=== PATIENT | male | born 1980 | race Caucasian/White ===

== ENCOUNTER 2020-04-03 11:28 | Outpatient (REF) | payer OTHER, SELFPAY ==
[2020-04-03 12:33] LABS: Hematocrit 42.4 % (42-52); Hemoglobin 14.5 g/dl (14.0-18.0); Mean Corpuscular HGB Conc 34.2 g/dl (31.0-36.0); Mean Corpuscular Volume 93.6 fL (80-98); Mean Platelet Volume 9.1 fL (9.4-12.4); Platelet Count 204 X10*3/uL (160-400); Red Blood Count 4.53 X10*6/uL (4.60-5.80); Red Cell Distribution Width 11.8 % (11.0-16.0); White Blood Count 4.6 X10*3/uL (4.8-10.8)
[2020-04-03 13:04] LABS: Alanine Aminotransferase 17 U/L (0-40); Albumin Level 4.6 g/dL (3.5-5.0); Alkaline Phosphatase 62 U/L (39-117); Anion Gap 9 (12-20); Aspartate Amino Transferase 19 U/L (5-37); Bilirubin Total 0.6 mg/dL (0.0-1.0); Blood Urea Nitrogen 12 mg/dL (9-16); Calcium 9.2 mg/dL (8.4-10.2); Carbon Dioxide 32 mmol/L (22-29); Chloride 105 mmol/L (96-108); Cholesterol 199 mg/dL; Estimated Glomerular Filt Rate > 60; Glucose Fasting 96 mg/dL (60-99); HDL Cholesterol 47 mg/dL; LDL Cholesterol Calculated 136 mg/dl; Potassium 4.4 mmol/L (3.3-5.1); Sodium 142 mmol/L (135-145); Total Protein 7.2 g/dL (6.5-8.0); Triglycerides 81 mg/dL
[2020-04-03 13:19] LABS: TSH reflex Free T4 0.77 uIU/mL (0.32-4.0)
== END 2020-04-03 11:29 | disposition home or self-care (01) ==
LOC: HO.LAB 11:28
PROVIDERS: PCP Physician Assistant; Visit Provider Physician Assistant
DX: I10 Essential (primary) hypertension (principal); Z13.1 Encounter for screening for diabetes mellitus; Z13.29 Encounter for screening for other suspected endocrine disorder; Z13.220 Encounter for screening for lipoid disorders
CPT/HCPCS: 36415; 80053; 80061; 84443; 85027

== ENCOUNTER 2020-04-23 11:27 | Outpatient (REF) | payer OTHER, SELFPAY ==
--- NOTE | ~2020-04-23 | US_ITS ---
EXAMINATION: US ABDOMEN LIMITED CLINICAL INFORMATION: Right upper quadrant pain. COMPARISON: None TECHNIQUE: Real-time imaging of the right upper quadrant abdominal viscera. FINDINGS: PANCREAS: The pancreas is partially obscured by overlying gas LIVER: The liver is normal in size. The liver contour is normal. Parenchymal echogenicity is normal. No focal hepatic lesion. There is no intrahepatic biliary duct dilatation seen. GALLBLADDER: Normal. The gallbladder is physiologically distended without evidence of stones, sludge, polyps, wall thickening or pericholecystic fluid. COMMON BILE DUCT: Normal in caliber measuring 0.3 cm in diameter. RIGHT KIDNEY: There is anechoic cyst lower pole lateral cortex with peripheral calcification with cyst measuring 1.0 x 1.0 x 1.2 cm. No hydronephrosis or renal calculi. The kidney measures 11.9 cm in maximum dimension. FREE FLUID: None. US/US abdomen limited IMPRESSION: Lateral lower pole complex cyst right kidney with peripheral calcification. No additional lesions seen. There are no echogenic gallstones or wall thickening.
== END 2020-04-23 11:28 | disposition home or self-care (01) ==
LOC: HO.US 11:27
PROVIDERS: PCP Physician Assistant; Visit Provider Physician Assistant
DX: R10.11 Right upper quadrant pain (principal)
CPT/HCPCS: 76705

== ENCOUNTER 2020-07-03 12:22 | Outpatient (REF) | payer OTHER, SELFPAY ==
[2020-07-03 13:11] LABS: Glucose Urine UA NEG (NEG); Leukocyte Esterase Urine NEG (NEG); Nitrite Urine NEG (NEG); Specific Gravity - Urine 1.025 (1.005-1.025); Urine Blood 2+ (NEG); Urine Ketones NEG (NEG); Urine Protein NEG (NEG-TRACE)
[2020-07-03 13:13] LABS: Appearance Urine CLEAR; Color Urine YELLOW
[2020-07-03 13:54] LABS: WBC Urine 0-2 /HPF (0-4)
== END 2020-07-03 12:23 | disposition home or self-care (01) ==
LOC: HO.LAB 12:22
PROVIDERS: PCP Physician Assistant; Visit Provider Physician Assistant
DX: R30.0 Dysuria (principal); R10.31 Right lower quadrant pain
CPT/HCPCS: 81001; 81003

== ENCOUNTER → 2020-07-07 10:44 | Outpatient (BNVA) | payer OTHER, SELFPAY | PROVIDERS: PCP Physician Assistant; Referring Provider Physician Assistant; Visit Provider Surgery ==

== ENCOUNTER 2020-07-24 12:28 | Outpatient (REF) | payer OTHER, SELFPAY ==
--- NOTE | ~2020-07-24 | US_ITS ---
EXAMINATION: US PELVIS, LIMITED CLINICAL INFORMATION: Status post right inguinal herniorrhaphy in 04/2019, without abnormality. COMPARISON: None TECHNIQUE: Multiple 2-D grayscale and color Doppler ultrasound images of the right inguinal region were obtained. FINDINGS: The patient is status post right inguinal herniorrhaphy with mesh repair. The mesh is seen causing acoustic shadowing limiting evaluation subjacent to the mesh. No definitive abnormality is seen. The overlying subcutaneous fat and skin are unremarkable. Color Doppler showed no abnormal vascular flow. US/US pelvic limited IMPRESSION: No overt abnormality in the right inguinal region.
--- NOTE | ~2020-07-24 | US_ITS ---
EXAMINATION: US RETROPERITONEAL LIMITED (RENAL ONLY) CLINICAL INFORMATION: Unspecified abdominal pain. COMPARISON: Ultrasound abdomen limited 04/23/2020. TECHNIQUE: Real-time imaging of the right kidney. FINDINGS: RIGHT KIDNEY: 10.9 x 6.2 x 7.5 cm (SAG x AP x TRV). A small exophytic anechoic cyst in the lower pole measures 1.0 cm. No nephrolithiasis or hydronephrosis. US/US renal BI IMPRESSION: Small anechoic cyst in the lower pole the right kidney without significant change or other significant abnormality.
== END 2020-07-24 12:29 | disposition home or self-care (01) ==
LOC: HO.US 12:28
PROVIDERS: Visit Provider Physician Assistant
DX: R10.9 Unspecified abdominal pain (principal); R31.29 Other microscopic hematuria
CPT/HCPCS: 76775; 76857

== ENCOUNTER 2020-08-20 11:00 | Outpatient (REF) | payer OTHER, SELFPAY ==
--- NOTE | ~2020-08-20 | XR_ITS ---
EXAMINATION: RIGHT WRIST X-RAY CLINICAL INFORMATION: Pain COMPARISON: Previous x-rays most recent January 2019 TECHNIQUE: 4 views of the right wrist FINDINGS: No acute fracture or dislocation is seen. There is an old ununited fracture of the mid scaphoid bone. There is arthritis at the first LONG TERM joint. There is arthritis at the radiocarpal joint. Soft tissues are unremarkable. 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 Arthritis at the first LONG TERM and radiocarpal joint.
== END 2020-08-20 11:01 | disposition home or self-care (01) ==
LOC: HO.HOSX 11:00
PROVIDERS: Visit Provider Orthopaedic Surgery
DX: M25.531 Pain in right wrist (principal)
CPT/HCPCS: 73110

== ENCOUNTER 2021-02-27 12:28 | Outpatient (REF) | payer OTHER, SELFPAY ==
[2021-02-27 12:54] LABS: Binax Now Covid-19 Ag Negative (Negative)
[2021-02-27 12:55] LABS: Binax Internal Control QC Valid; Binax Performed by: HO.BONILM
== END 2021-02-27 12:29 | disposition home or self-care (01) ==
LOC: HO.HMGCLDS 12:28
PROVIDERS: Visit Provider Internal Medicine
DX: Z20.822 Contact with and (suspected) exposure to COVID-19 (principal); J06.9 Acute upper respiratory infection, unspecified
CPT/HCPCS: 36415

== ENCOUNTER 2021-04-10 12:21 | Outpatient (REF) | payer OTHER, SELFPAY ==
[2021-04-10 12:42] LABS: Hematocrit 38.8 % (42.0-52.0); Hemoglobin 13.3 g/dl (14.0-18.0); Mean Corpuscular HGB Conc 34.3 g/dl (31.0-36.0); Mean Corpuscular Hemoglobin 32.4 pg (27.0-33.0); Mean Corpuscular Volume 94.6 fL (80.0-98.0); Mean Platelet Volume 8.9 fL (9.4-12.4); Platelet Count 187 X10*3/uL (160-400); Red Cell Distribution Width 12.2 % (11.0-16.0); White Blood Count 3.9 X10*3/uL (4.8-10.8)
[2021-04-10 12:49] LABS: Estimated Average Glucose 88 mg/dL; Hemoglobin A1c % 4.7 %
[2021-04-10 13:07] LABS: Alanine Aminotransferase 20 U/L (0-40); Albumin Level 4.6 g/dL (3.5-5.0); Alkaline Phosphatase 56 U/L (39-117); Anion Gap 8 (12-20); Aspartate Amino Transferase 25 U/L (5-37); Bilirubin Total 0.5 mg/dL (0.0-1.0); Blood Urea Nitrogen 14 mg/dL (9-16); Calcium 9.4 mg/dL (8.4-10.2); Carbon Dioxide 31 mmol/L (22-29); Chloride 107 mmol/L (96-108); Cholesterol 202 mg/dL; Estimated Glomerular Filt Rate > 60; Glucose Fasting 100 mg/dL (60-99); HDL Cholesterol 46 mg/dL; LDL Cholesterol Calculated 136 mg/dl; Sodium 142 mmol/L (135-145); Total Protein 7.1 g/dL (6.5-8.0); Triglycerides 103 mg/dL
[2021-04-10 13:18] LABS: Appearance Urine CLOUDY; Color Urine YELLOW; Glucose Urine UA NEG (NEG); Leukocyte Esterase Urine NEG (NEG); Nitrite Urine NEG (NEG); PH 6.5 (5.0-8.0); UACC Culture Trigger NO; Urine Blood 2+ (NEG); Urine Ketones NEG (NEG); Urine Protein NEG (NEG-TRACE)
[2021-04-10 13:26] LABS: TSH reflex Free T4 4.19 uIU/mL (0.32-4.0)
[2021-04-10 13:35] LABS: Amorphous Sediment Urine 3+ /LPF; WBC Urine 0 /HPF (0-4)
[2021-04-10 14:05] LABS: Free T4 (Free Thyroxine) 1.05 ng/dL (0.71-1.85)
== END 2021-04-10 12:22 | disposition home or self-care (01) ==
LOC: HO.LAB 12:21
PROVIDERS: PCP Physician Assistant; Visit Provider Physician Assistant
DX: Z13.220 Encounter for screening for lipoid disorders (principal); Z13.1 Encounter for screening for diabetes mellitus; E03.9 Hypothyroidism, unspecified
CPT/HCPCS: 36415; 80053; 80061; 81001; 83036; 84439; 84443; 85027

== ENCOUNTER 2021-04-16 13:20 | Outpatient (REF) | payer OTHER, SELFPAY ==
--- NOTE | ~2021-04-16 | XR_ITS ---
EXAMINATION: XR RIBS, RIGHT CLINICAL INFORMATION: Right anterior rib pain COMPARISON: None TECHNIQUE: 3 views of the right ribs and one view of the chest were obtained. FINDINGS: Lungs are clear. No consolidation, pneumothorax, or pleural effusion. The cardiomediastinal silhouette and pulmonary vasculature are normal. There is a right CASINO ATTENDANT shunt catheter. Osseous structures are unremarkable. Ribs are intact. No fractures are identified. XR/XR ribs RT min 3V w CXR1V IMPRESSION: Unremarkable examination.
== END 2021-04-16 13:21 | disposition home or self-care (01) ==
LOC: HO.XRAY 13:20
PROVIDERS: PCP Physician Assistant; Visit Provider Physician Assistant
DX: R07.81 Pleurodynia (principal)
CPT/HCPCS: 71101

== ENCOUNTER 2021-05-15 13:12 | Outpatient (REF) | payer OTHER, SELFPAY ==
--- NOTE | ~2021-05-15 | CT_ITS ---
EXAMINATION: CT WRIST WITHOUT CONTRAST, RIGHT CLINICAL INFORMATION: Fracture of navicular. COMPARISON: X-ray of the right wrist July 2020. TECHNIQUE: CT scan of the right wrist was performed with reconstruction imaging performed at the acquisition workstation. This CT examination was performed using dose optimization techniques as appropriate, variously including the following: *Automated exposure control *Adjustment of mA and/or kV according to patient size (this includes techniques or standardized protocols for targeted exams where dose is matched to indication/reason for exam; i.e. extremities or head) *Use of iterative reconstruction technique DLP: 96 mGy-cm FINDINGS: There is a minimally displaced fracture through the proximal scaphoid at the junction of the proximal middle one third portion of the bone. There are sclerotic margins on either side of the fracture line. The fracture gap is small measuring approximately 1 mm. There is 1.5 mm of radial displacement of the distal fragment. There is no increased osseous density or fragmentation of the proximal pole fragment. There is a small osseous fragment measuring approximately 3 mm within the radial aspect of the radiocarpal joint which likely reflects a displaced fracture fragment related to the aforementioned fracture. There is subchondral cystic change on the radial side of the radial scaphoid joint compatible with focal mild arthrosis of the radiocarpal compartment at the level of the scaphoid fossa. Additional findings: Scattered carpal cysts present in the distal scaphoid and capitate and hamate. First carpometacarpal joint: There is nonuniform joint space narrowing with marginal osteophytes indicative of [id number] osteoarthritis. Small well-circumscribed 3 mm osseous fragment adjacent to the dorsal aspect of the lunate. This could reflect an old fracture ununited or ossicle. CT/CT wrist RT wo con IMPRESSION: Scaphoid fracture nonunion. No CT findings to suggest avascular necrosis of the proximal pole fragment. 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 Small loose body likely related to small displaced fracture fragment related to the fracture. [id number] osteoarthritis of the 1st carpometacarpal joint. Carpal ossicle versus old ununited fracture along the dorsal aspect of the lunate.
== END 2021-05-15 13:13 | disposition home or self-care (01) ==
LOC: HO.CT 13:12
PROVIDERS: Visit Provider Orthopaedic Surgery
DX: S62.001K Unspecified fracture of navicular [scaphoid] bone of right wrist, subsequent encounter for fracture with nonunion (principal)
CPT/HCPCS: 73200

== ENCOUNTER → 2021-06-02 10:32 | Outpatient (BNVA) | payer OTHER, SELFPAY | PROVIDERS: PCP Physician Assistant; Visit Provider Orthopaedic Surgery | DX: Z13.89 Encounter for screening for other disorder (principal) ==

== ENCOUNTER 2021-07-30 10:07 | Day surgery (SDC) | payer OTHER, SELFPAY ==
--- NOTE | ~2021-07-30 | FL_ITS ---
EXAMINATION: XR FLUOROSCOPY WITH IMAGES CLINICAL INFORMATION: Wrist pain with nonunited scaphoid fracture. COMPARISON: 08/20/2020 TECHNIQUE: Fluoroscopy performed by Dr. Trish Ferrer. Fluoroscopy time: 14.9 seconds DAP: 0.0184 Gycm2 Images: 1 FINDINGS: Single AP view of the wrist performed by C-arm. FL/FL guidance in OR IMPRESSION: Intraoperative fluoroscopy used for orthopedic procedure.
[2021-07-30 10:32] VITALS: BP 107/69; PULSE 67; RESP 18; TEMP 36.4; O2SAT 99; BMI 24.3
[2021-07-30 13:20] VITALS: BP 108/68; PULSE 64; RESP 18; TEMP 36.2; O2SAT 98
--- NOTE | 2021-07-30 13:22 | PM.PRCOR ---
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 Both were approximately 4 to 5/10. Again he has very good and functional wrist range of motion at this time. Injection #1 : The risks and benefits of a steroid injection including but not limited to risk of damage to blood vessels, nerve, tendon, infection, skin bleaching, persistent or worsening pain, and failure to improve symptoms were discussed with the patient and they wish to proceed with the steroid injection. Once consent was obtained the skin over the dorsum of the right wrist was sterilely prepped. Using the mini C-arm for needle guidance, the joint was then injected with a combination of 1 mL of (80 mg/ml} Depo-Medrol and 0.25 % plain Marcaine. The patient appears to have tolerated the procedure well and with no complications. He understands that he may have no more than 3 injections into this joint in a year, and he would be eligible for another injection in 4 months. Follow-up p.r.n. Surgeon: Trish Ferrer Condition: stable Disposition: same day
== END 2021-07-30 13:25 | disposition home or self-care (01) ==
PROVIDERS: PCP Physician Assistant; Visit Provider Orthopaedic Surgery
PROC: (CPT 20605; principal; 2021-07-30 11:10)
DX: S62.001K Unspecified fracture of navicular [scaphoid] bone of right wrist, subsequent encounter for fracture with nonunion (principal); M19.031 Primary osteoarthritis, right wrist; M24.031 Loose body in right wrist; X58.XXXD Exposure to other specified factors, subsequent encounter; Z87.828 Personal history of other (healed) physical injury and trauma; Z87.891 Personal history of nicotine dependence
CPT/HCPCS: 20605; J1040

== ENCOUNTER 2021-09-10 11:11 | Outpatient (REF) | payer OTHER, SELFPAY ==
[2021-09-10 13:07] LABS: TSH reflex Free T4 0.54 uIU/mL (0.32-4.0)
[2021-09-10 13:58] LABS: Appearance Urine CLEAR; Color Urine YELLOW; Glucose Urine UA NEG (NEG); Leukocyte Esterase Urine NEG (NEG); Nitrite Urine NEG (NEG); PH 6.5 (5.0-8.0); UACC Culture Trigger NO; Urine Blood 2+ (NEG); Urine Ketones NEG (NEG); Urine Protein NEG (NEG-TRACE)
[2021-09-10 14:10] LABS: Hyaline Casts Urine 0-2 /LPF; WBC Urine 0 /HPF (0-4)
== END 2021-09-10 11:12 | disposition home or self-care (01) ==
LOC: HO.LAB 11:11
PROVIDERS: PCP Physician Assistant; Visit Provider Physician Assistant
DX: E03.9 Hypothyroidism, unspecified (principal)
CPT/HCPCS: 36415; 81001; 84443

== ENCOUNTER 2021-10-19 11:00 | Outpatient (RCR) | payer OTHER, SELFPAY ==
--- NOTE | 2021-09-14 12:19 | MHC.OT.OEV ---
[address] [phone] F: [phone] Occupational Therapy Evaluation Diagnosis: Right Scaphoid non-union, s/p cortisone injection Date of Onset: 07/24/21 Attending Provider: Dr Ferrer Prescribed Treatment: Ron and Shelly MD Follow Up Appointment: 09/15/21 History of Current Condition: Pt w/ hx of multiple injury to right wrist, resulting in right scaphoid non-union, CT shows evidence of STT arthritis. He has had multiple discussions w/ military technology specialist and has decided to trial conservative treatment at this time, now s/p cortisone injection 07/24/21. About one week after injection, he noticed weakness in all digits, which has mostly returned, but he continues to have absent right thumb IP extension. Significant Medical History: Craniotomy w/ shunt about 20 years ago Right clavicle fracture Hand Dominance: Right QuickDASH Score: 18 Prior Level of Function and Occupation Self Care, Employment, Leisure: Pt works at a long-term, STATISTICS MANAGER and med management Enjoys [employer], Help[employer] Living Situation, Family and/or Social Support: Lives w/ girlfriend Current Level of Function and Occupation Self Care, Employment, Leisure: Ind w/ daily activities, low pain in general but difficulty holding objects Sleep: No changes due to thumb/wrist pain Driving: No issues Pain Assessment Pain Score: 3 Pain Scale Used: Numeric (0 - 10) Pain Location and Description: Dorsal-radial wrist, 3/10 resting, 5/10 w/ heavier use Tenderness to palpate over snuffbox Aggravating Factors: Gripping, heavier use, heavy carrying Alleviating Factors: Splint, Ibuprophen frequently, Diclofenac PRN Skin and Soft Tissue Assessment Skin and Soft Tissue: Swelling Nerve assessment Comments: Grossly WNL, however pt appears to have potential PIN injury w/ loss of active D1 IP extension, weak radial and palmar abduction, thumb extension Sensory Assessment Comments: Light touch intact B/L'ly Edema Assessment Upper Extremity: Right Impaired Lower Extremity: Comments: Edema in dorsal-radial wrist Dexterity Assessment Dexterity: Right Impaired AROM(PROM) Strength Cervical Cervical Flexion: Cervical Extension: Cervical Lateral Flexion: Cervical Rotation: Comments: WFL Shoulder Flexion: Extension: Abduction: Internal Rotation: External Rotation: Comments: WFL Flexion: Extension: Abduction: Internal Rotation: External Rotation: Comments: Elbow Flexion: Extension: Pronation: Supination: Comments: WFL Flexion: Extension: Pronation: Supination: Comments: Wrist Flexion: R 45 L 64 Extension: R 64 L 72 Ulnar Deviation: Radial Deviation: Comments: Flexion: Extension: Ulnar Deviation: Radial Deviation: Comments: Grossly 5/5 Thumb Thumb CMC Flexion: Thumb MCP Flexion: Thumb IP Flexion: Radial Abduction: Palmar Abduction: [place] (Kapandji 0-10): Comments: WFL PROM on right Digits Index MCP: PIP: DIP: Long MCP: PIP: DIP: Ring MCP: PIP: DIP: Small MCP: PIP: DIP: Comments: WFL Gross Grasp: R 98lb L 100lb Lateral Pinch: R 20lb L 22lb Two-Point Pinch: R 5lb L 13lb Three-Jaw Mikel: Comments: Patient Education Primary Language: Guamanian Manager Of Revenue Required: No Current Knowledge: Teaching Method: Education Needs Identified on Evaluation: ADL's Disease Information Equipment Use Exercise Pain Safety How did patient/family demonstrate learning? Patient demonstrates Patient verbalizes Barriers to Learning: None Readiness for Learning: Accepting Who was educated? 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 He is initially concerned for trigger finger due to difficulty w/ thumb extension, but further assessment consistent PIN injury w/ weak thumb abduction and extension, particularly 0/5 IP extension. He reports overall improvements in wrist pain s/p cortisone infection and gross grasp is intact, all other digits WFL with very slight weakness in index extension at MCP. At this time I have recommended he wear thumb spica at night to protect wrist and have given him an oval 8 for IP extension to prevent stretching of extensors. We will continue OT for progression of strengthening and functional return as he is showing good signs of recovery. Pt has appointment with Dr Ferrer tomorrow and will update on further information and recommendations. STG Duration: 1 week Short Term Goals: Ind w/ HEP Ind w/ oval 8 and thumb spica splint as appropriate Pt to demo trace active IP extension LTG Duration: 4 weeks Half-Way Goals: Pt to demo good use of thumb for FMC tasks Pt to demo active thumb IP extension >3/5 Ind w/ progression of self management Frequency and Duration: The patient will be seen 1-2 x/wk for 4 weeks Treatment Plan: Therapeutic Exercise Therapeutic Activity Home Exercise Program Splinting Patient Education Edema Control ADL Training NMES Paraffin Fluidotherapy MHP Soft Tissue Mobilization Kinesiotaping Electronically Signed By: Jovita De La Fuente OTR/L CHT Please sign and return to therapist, Thank you for your referral.
--- NOTE | 2021-11-23 14:10 | MHC.OT.DC ---
[address] [phone] F: [phone] Occupational Therapy Discharge Note Provider: Dr Ferrer Diagnosis: Right Scaphoid non-union, s/p cortisone injection Date of Evaluation: 09/14/21 Date of Discharge: 11/23/21 Treatments to Date: 4 Discharge Status: Patient Elected to Stop Discharge Summary: Khalif has not attended OT in over a month, since time of latest progress note and MD visit. At that time he cont'd to have absent thumb IP extension, but improved strength w/ index ext, radial and palm thumb abd. Pt has good follow through w/ HEP, still overdoing it w/ aggravating activities. Electronically Signed By: Jovita De La Fuente, OTR/L CHT Please Sign and return to therapist, thank you for your referral.
== END 2021-11-23 14:11 | disposition home or self-care (01) ==
LOC: HO.OT 11:00
PROVIDERS: PCP Physician Assistant; Visit Provider Orthopaedic Surgery
DX: S62.001K Unspecified fracture of navicular [scaphoid] bone of right wrist, subsequent encounter for fracture with nonunion (principal)
CPT/HCPCS: 97110; 97166

== ENCOUNTER 2021-10-20 09:10 | Outpatient (REF) | payer OTHER, SELFPAY ==
--- NOTE | ~2021-10-20 | XR_ITS ---
EXAMINATION: XR WRIST, RIGHT CLINICAL INFORMATION: Right wrist pain COMPARISON: Radiograph 08/20/2020. CT 05/15/2021. TECHNIQUE: 4 views of the right wrist. FINDINGS: The chronic nonunion of the scaphoid fracture is again noted. Small ossific gap between the fragments. Alignment maintained otherwise. Carpal rows are aligned. Joint spaces are maintained. XR/XR wrist RT w scaphoid IMPRESSION: Unchanged alignment of the chronic nonunited scaphoid fracture.
== END 2021-10-20 09:11 | disposition home or self-care (01) ==
LOC: HO.HOSX 09:10
PROVIDERS: Visit Provider Orthopaedic Surgery
DX: M25.531 Pain in right wrist (principal)
CPT/HCPCS: 73110

== ENCOUNTER 2022-03-05 12:32 | Outpatient (REF) | payer OTHER, SELFPAY ==
[2022-03-05 13:31] LABS: Appearance Urine Clear; Color Urine Dark Yellow; Glucose Urine UA Negative (Negative); Leukocyte Esterase Urine Negative (Negative); Nitrite Urine Negative (Negative); Specific Gravity - Urine >= 1.030 (1.005-1.025); Urine Blood Negative (Negative); Urine Ketones Trace mg/dL (Negative); Urine Protein Trace mg/dL (Neg-Trace)
== END 2022-03-05 12:33 | disposition home or self-care (01) ==
LOC: HO.LAB 12:32
PROVIDERS: PCP Physician Assistant; Visit Provider Physician Assistant
DX: R30.0 Dysuria (principal); R31.29 Other microscopic hematuria
CPT/HCPCS: 81003

== ENCOUNTER 2022-03-12 14:57 | Outpatient (REF) | payer OTHER, SELFPAY ==
[2022-03-12 17:36] LABS: Urine Cytology See Pathology rpt
== END 2022-03-12 14:58 | disposition home or self-care (01) ==
LOC: HO.LAB 14:57
PROVIDERS: PCP Physician Assistant; Visit Provider Nurse Practitioner Family
DX: R31.29 Other microscopic hematuria (principal); N28.1 Cyst of kidney, acquired
CPT/HCPCS: 88112

== ENCOUNTER 2022-04-19 11:01 | Outpatient (REF) | payer OTHER, SELFPAY ==
--- NOTE | ~2022-04-19 | CT_ITS ---
EXAMINATION: CT ABDOMEN AND PELVIS WITHOUT AND WITH CONTRAST CLINICAL INFORMATION: N28.1 - Cyst of kidney, acquired. Microscopic hematuria. COMPARISON: Renal ultrasound 07/24/2020, abdominal ultrasound 04/23/2020. CT head 02/06/2015. TECHNIQUE: Multidetector volumetric imaging was performed of the abdomen and pelvis before and after the IV administration of 85 mL of Omnipaque 300 intravenous contrast. Sagittal and coronal reformatted images were obtained on the technologist's workstation. No oral contrast. This CT examination was performed using dose optimization techniques as appropriate, variously including the following: *Automated exposure control *Adjustment of mA and/or kV according to patient size (this includes techniques or standardized protocols for targeted exams where dose is matched to indication/reason for exam; i.e. extremities or head) *Use of iterative reconstruction technique DLP: 638 mGy-cm FINDINGS: LUNG BASES: The visualized lung bases are unremarkable. LIVER, GALLBLADDER, AND BILIARY TREE: The liver is normal in size and smooth in contour. There is a cyst central segment 7 measuring 1.8 x 1.4 cm. The gallbladder is unremarkable with no evidence of radiopaque gallstones, gallbladder wall thickening, or obvious pericholecystic inflammatory changes. PANCREAS: Unremarkable SPLEEN: Unremarkable ADRENAL GLANDS: Unremarkable KIDNEYS AND URETERS: The kidneys are normal in size and smooth in contour. There is no hydronephrosis, caliectasis, hydroureter, or perinephric stranding. No urinary tract calculi. Right kidney has a tiny exophytic cyst lower pole 0.9 cm, 11-14 HU. No associated calcification as was suspected on ultrasound report 04/23/2020. No other parenchymal lesion. No additional imaging follow-up recommended. Left kidney unremarkable. BLADDER: Unremarkable. Partially distended. No bladder calculus or focal wall thickening. GASTROINTESTINAL TRACT: No bowel obstruction or focal inflammatory changes in bowel or mesentery. Normal appendix. There is a ventriculoperitoneal shunt catheter present with some trace fluid lower right anterior abdomen/pelvis. No loculated fluid collection or significant ascites. ABDOMINAL WALL: Borderline fat-containing umbilical hernia under 2 cm. LYMPH NODES: No lymphadenopathy. VASCULAR: Unremarkable PELVIC VISCERA: Unremarkable OSSEOUS STRUCTURES: Unremarkable CT/CT abdomen pelvis wo/w IV con IMPRESSION: -No hydronephrosis, calculi, or perinephric stranding. -Tiny exophytic cyst lower pole right kidney 0.9 cm. No associated calcification as was suspected on ultrasound 04/23/2020. No additional imaging follow-up recommended. -Liver cyst 1.8 x 1.4 cm.
[2022-04-19] MEDS: iohexoL 350 MG/ML 100 ML INFUS..BTL 85 ML IV (11:48)
== END 2022-04-19 11:02 | disposition home or self-care (01) ==
LOC: HO.CT 11:01
PROVIDERS: PCP Physician Assistant; Visit Provider Nurse Practitioner Family
DX: N28.1 Cyst of kidney, acquired (principal); R31.29 Other microscopic hematuria
CPT/HCPCS: 74178; Q9967

== ENCOUNTER → 2022-06-25 14:19 | Outpatient (BNVA) | payer OTHER, SELFPAY | PROVIDERS: PCP Physician Assistant; Visit Provider Urology ==

== ENCOUNTER 2022-12-29 15:31 | Outpatient (AMB) | payer OTHER, SELFPAY ==
[2022-12-29 15:33] VITALS: BP 118/80; PULSE 80; O2SAT 96; BMI 24.8
--- NOTE | 2022-12-29 15:33 | MHC.PC.OV ---
Vital Signs 12/29/22 15:33 Height 5 ft 9 in Weight 168 lb 4 oz BMI 24.8 BP 118/80 Blood Pressure Location Lt brachial Position Sitting Pulse 80 Pulse Source Pulse Oximeter Pulse Oximetry (%) 96 Oxygen Delivery Method Room Air Intake Visit Reasons: heart palpitations (no chest pain/SOB) Intake Note: Pt is here for ongoing palpitations and is coming more often. Pt denies any chest pain or SOB and sleeping well. Box Toe Buffer Required: No Accompanied by: Self / Same As Patient Allergies No Known Allergies Allergy (Verified 12/29/22 15:47) Medication List - Last Reconciled 12/29/22 by Nasir Perkins PA-C clobetasol 0.05% 1 appl topical DAILY 30 days diclofenac sodium 75 mg PO BID 15 days lamotrigine 200 mg PO BID levothyroxine 175 mcg PO DAILY Tobacco use date assessed: 08/12/22 Dental Screening Dental Screen Date: 12/29/22 Did you have a dental visit in the last 12 months?: Yes Did you have a dental problem in the last 6 months where you did not have access to dental care?: No Was dental information given to patient?: Patient has dentist HPI heart palpitations (no chest pain/SOB) HPI Details Patient is a 42-year-old male here today for a problem visit. He reports noticing heart palpitations this past weekend. He does admit to drinking more coffee as he has not been getting good sleep. He attributes these palpitations possibly to increase in his caffeine use which is very possible. Otherwise currently feeling well. Physical exam without any notable arrhythmia, gallops or murmurs. 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 Father Heart attack, Onset Age: 57 Diabetes Social History Housing: Apartment Alcohol intake: current Alcohol intake frequency: a few times a month Alcohol type: beer Patient Tobacco Use Status: Former Tobacco user Quit Date: 2002 Tobacco use type: Cigarette e-Cigarette/Vaping Use: Never Used Second Hand Smoke Exposure: No service: No Current occupational status: employed Current occupation: rt hand /patient care Cognitive needs: No Hearing needs: No Vision needs: Yes (Glasses) Questionnaire PHQ-9 Over the last 2 weeks, how often have you been bothered by any of the following problems? 1. Little interest or pleasure in doing things: not at all 2. Feeling down, depressed, or hopeless: not at all 3. Trouble falling or staying asleep, or sleeping too much: not at all 4. Feeling tired or having little energy: not at all 5. Poor appetite or overeating: not at all 6. Feeling bad about yourself - or that you are a failure or have let yourself or your family down: not at all 7. Trouble concentrating on things, such as reading the newspaper or watching television: not at all 8. Moving or speaking so slowly that other people could have noticed. Or the opposite - being so fidgety or restless that you have been moving around a lot more than usual: not at all 9. Thoughts that you would be better off or of hurting yourself in some way: not at all Total score: 0 Depression Screening Interpretation: Negative Depression Screening Done: Yes 10932 - PHQ-9 Billing: Yes Source: Developed by Drs. Robbin Hancock, Lilibeth Bobby, Epifanio See and colleagues, with an educational phu from [employer]. Thrive Questionnaire Date Thrive assessed: 08/12/22 I am a: Patient What is your living situation today?: I have a steady place to live Please select the resources that you would like help with: None Currently or been in a relationship where the following occur: no concerns reported AUDIT C Alcohol Use Questionnaire (AUDIT-C) 1. How often do you have a drink containing alcohol?: 2-3 times a week 2. How many drinks containing alcohol do you have on a typical day when you are drinking?: 5 or 6 3. How often do you have six or more drinks on one occasion?: Weekly Total Score: 8 BJORN-7 AMB Questionnaire BJORN-7 Date BJORN - 7 assessed: 08/12/22 Feeling nervous, anxious, or on edge: 0 = Not at all Not being able to stop or control worryin = Not at all Worrying too much about different things: 0 = Not at all Trouble relaxin = Not at all Being so restless that it is hard to sit still: 0 = Not at all Becoming easily annoyed or irritable: 0 = Not at all Feeling afraid as if something awful might happen: 0 = Not at all Total BJORN-7 score (0-4 normal; 5-9 mild; 10-14 moderate; 15-21 severe): 0 Source: Developed by Drs. Robbin Hancock, Lilibeth Bobby, Epifanio See and colleagues, with an educational phu from [employer]. BJORN-7 Assessment Billing BJORN-7 Assessment Tool: BJORN-7 Assessment 21746 Review of Systems Const Denies headache(s) Eyes Denies loss of vision ENT Denies vertigo, Denies dizziness, Denies headache(s) and Denies sore throat Card Details: + heart palpitations Denies chest pain, Denies leg edema and Denies lightheadedness Resp Denies cough, Denies hemoptysis and Denies wheezing GI Denies abdominal pain, Denies melena, Denies constipation, Denies diarrhea and Denies vomiting Denies dysuria, Denies urinary frequency and Denies urinary urgency Musc Denies arthralgias, Denies joint swelling, Denies numbness and Denies tingling Neuro Denies Abnormal speech present, Denies behavioral changes, Denies vertigo, Denies dizziness, Denies headache(s), Denies loss of vision, Denies memory loss, Denies numbness and Denies tingling Psych Denies anxiety, Denies behavioral changes, Denies depression, Denies memory loss and Denies panic attacks Wilbur/Lymph Denies easy bleeding and Denies easy bruising Aller/Immun Denies wheezing Physical exam (Primary Care) Vital Signs: Last Vital Signs Pulse 80 12/29/22 15:33 BP 118/80 12/29/22 15:33 Pulse Ox 96 12/29/22 15:33 Oxygen Delivery Method Room Air 12/29/22 15:33 BMI result Body Mass Index 24.8 Tobacco/Smoking Status: Tobacco use Status Tobacco use date assessed 08/12/22 12/29/22 15:35 Patient Tobacco Use Status Former Tobacco user 12/29/22 15:35 Tobacco use type Cigarette 12/29/22 15:35 e-Cigarette/Vaping Use Never Used 12/29/22 15:35 PHQ-9: PHQ-9 Score PHQ-9: Total score 0 12/29/22 15:43 Depression Screening Interpretation: Negative Thrive Assessment: Date of Thrive Assessment Date Thrive assessed 08/12/22 12/29/22 15:35 Currently or been in a relationship where the following occur: no concerns reported Const General: healthy appearing, no acute distress, alert and awake Nutritional Appearance: well nourished Orientation/consciousness: oriented to person, oriented to place and oriented to time HENMT Ears: TM's normal bilaterally General nose exam: Normal nasal mucous membranes and turbinates present Eyes Conjunctivae: conjunctivae normal Sclerae: sclerae normal Pupils: Equal, round and reactive pupils present Neck Neck: Yes no lymphadenopathy and Yes no JVD Thyroid: Thyroid normal Carotids: no bruits Resp Effort & Inspection: normal respiratory effort and not tachypneic Auscultation: no crackles, no rales, no rhonchi and no wheezes Cardio Rate: regular rate Rhythm: regular rhythm Heart sounds: no murmurs and normal S1 and S2 GI Palpation (GI): Soft to palpation, nontender, no hepatomegaly and no splenomegaly Auscultation: normal bowel sounds Skin General skin exam: no rashes or lesions noted and dry skin Neuro General: oriented to person, oriented to place and oriented to time Cranial nerves: Yes Equal, round and reactive pupils present Speech: No Abnormal speech present Gait exam (Neuro): Normal gait present Motor exam (neuro): no tremor noted Extrem Right upper extremity: full ROM Left upper extremity: full ROM Right lower extremity: full ROM; no edema Left lower extremity: full ROM; no edema Psych Mental Status: mental status grossly normal Speech and movement: Normal speech and movement present Affect: normal affect Attitude: cooperative Thought process: Normal thought process present Assessment and Plan Assessment & Plan (1) Heart palpitations: Code(s): R00.2 - Palpitations Plan: Had noticed more palpitations recently. He has been drinking more caffeine and smoking marijuana which he attributes to his palpitations. He will try to reduce his caffeine to see if his palpitations get better. Will consider Holter monitor to evaluate for arrhythmia. Coding Level of Care Code Est Pt Level 3 (57093) Diagnoses Heart palpitations R00.2 Additional Codes BJORN-7 Assessment Billing - BJORN-7 Assessment Tool: BJORN-7 Assessment 32227 ([id number])
== END 2022-12-29 15:58 | disposition home or self-care (01) ==
PROVIDERS: PCP Physician Assistant; Visit Provider Physician Assistant
DX: R00.2 Palpitations (principal)
CPT/HCPCS: 99213

== ENCOUNTER 2023-01-14 14:28 | Outpatient (AMB) | payer OTHER, SELFPAY ==
[2023-01-14 14:29] VITALS: BP 110/70; PULSE 60; TEMP 36.6; O2SAT 98; BMI 24.8
--- NOTE | 2023-01-14 14:29 | AM.OFFWIN_ITS ---
Intake Vital Signs 01/14/23 14:29 Height 5 ft 9 in Weight 168 lb BMI 24.8 BP 110/70 Blood Pressure Location Rt brachial Position Sitting Pulse 60 Pulse Source Pulse Oximeter Temp 97.8 F Temp Source Temporal Artery Scan Pulse Oximetry (%) 98 Intake Visit Reasons: EP Heart Palpitation Intake Note: pt is here for c.o heart palpitation sporadically over the last few weeks Patient Tobacco Use Status: Former Tobacco user Quit Date: 2002 Allergies No Known Allergies Allergy (Verified 01/16/23 15:27) HPI EP Heart Palpitation HPI Details 42 yr old male presents to the office fo r a sick visit. He is reporting symptoms of irregular heart beat. Reports sx of thumping at times. No nausea or vomiting. Called his PCP who has scheduled him for an holter monitor. No reports of dizziness, diaphoresis, shortness of breath or chest pains. Able to function and do all activities of daily living. 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 Father Heart attack, Onset Age: 57 Diabetes Housing: Apartment Alcohol intake: current Alcohol intake frequency: a few times a month Alcohol type: beer Patient Tobacco Use Status: Former Tobacco user Quit Date: 2002 Tobacco use type: Cigarette e-Cigarette/Vaping Use: Never Used Second Hand Smoke Exposure: No service: No Current occupational status: employed Current occupation: rt hand /patient care Cognitive needs: No Hearing needs: No Vision needs: Yes (Glasses) Physical Exam Vital Signs: Last Vital Signs Temp 97.8 F 01/14/23 14:29 Pulse 60 01/14/23 14:29 BP 110/70 01/14/23 14:29 Pulse Ox 98 01/14/23 14:29 BMI result Body Mass Index 24.8 Const General: cooperative and healthy appearing Nutritional Appearance: well nourished Orientation/consciousness: patient oriented x3 Limitations: no limitations HEENT Head: Yes normal to inspection Eyes General: appearance normal, both eyes and all related structures Neck Neck: Yes normal visual inspection Chest Chest palpation & inspection: normal palpation of entire chest wall Resp Effort & Inspection: normal respiratory effort Neuro General: patient oriented x3 Office Procedures EKG Details: PVC 28389-[id number], Complete Assessment & Plan Assessment & Plan (1) Heart palpitations: Code(s): R00.2 - Palpitations Plan: Unremarkable EKG. Pt was reassured. Can wait till he gets his Holter monitor Orders: Orders AMB EKG-In Office 01/14/23 R07.9 - Chest pain, unspecified Coding Level of Care Code Est Pt Level 4 (76151) Diagnoses Heart palpitations R00.2 CPT Codes EKG - CPT: 59223-Eqzpknuasdfcaqcfd, Complete ([id number])
== END 2023-01-14 15:00 | disposition home or self-care (01) ==
PROVIDERS: PCP Physician Assistant; Visit Provider Internal Medicine
DX: R00.2 Palpitations (principal)
CPT/HCPCS: 93000; 99214

== ENCOUNTER → 2023-01-21 12:58 | Outpatient (REF) | payer OTHER, SELFPAY ==
--- NOTE | 2023-01-21 13:26 | HM_ITS ---
Conclusion: 1. Patient was monitored for total period of 2 days and 22 hours 2. Baseline was normal sinus with average heart of 77 beats per minute 3. No significant pauses or arrhythmias noted 4. Patient reported to events with mild chest pressure that correlated with sinus rhythm and sinus tachycardia MTDD
== END ==
LOC: HO.CARD 12:58
PROVIDERS: PCP Physician Assistant; Visit Provider Physician Assistant
DX: R00.2 Palpitations (principal)
CPT/HCPCS: 93242

== ENCOUNTER → 2023-01-21 13:26 | Outpatient (BNV) | payer OTHER, SELFPAY | PROVIDERS: PCP Physician Assistant; Visit Provider Internal Medicine Cardiovascular Disease | DX: R00.2 Palpitations (principal); R07.9 Chest pain, unspecified | CPT/HCPCS: 93244 ==

== ENCOUNTER 2023-03-07 09:49 | Outpatient (REF) | payer OTHER, SELFPAY ==
[2023-03-07 11:44] LABS: Blood Urea Nitrogen 12 mg/dL (9-16); Estimated Glomerular Filt Rate > 60
== END 2023-03-07 09:50 | disposition home or self-care (01) ==
LOC: HO.LAB 09:49
PROVIDERS: PCP Physician Assistant; Visit Provider Nurse Practitioner Family
DX: R39.15 Urgency of urination (principal)
CPT/HCPCS: 36415; 82565; 84520

== ENCOUNTER 2023-03-10 10:13 | Outpatient (AMB) | payer OTHER, SELFPAY ==
--- NOTE | 2023-03-10 10:06 | A.OFFPC_ITS ---
Intake Visit Reasons: 6 Month F/Up Security Door Installer Required: No Accompanied by: Self / Same As Patient Allergies No Known Allergies Allergy (Verified 01/16/23 15:27) Tobacco use date assessed: 03/10/23 Dental Screening Dental Screen Date: 03/10/23 Did you have a dental visit in the last 12 months?: Yes Did you have a dental problem in the last 6 months where you did not have access to dental care?: No Was dental information given to patient?: Patient has dentist HPI 6 Month F/Up HPI Details Patient is a 42-year-old male being evaluated today telephone only. Patient has a past medical history significant for traumatic brain injury, hypothyroidism. Recently experiencing heart palpitations and was sent for cardiac event monitor that did show some sinus tachycardia though no arrhythmia like AFib or a flutter.. .. Hypothyroidism: Continues on 175 mcg of levothyroxine. Will recheck TSH to assure normal. .. Epilepsy/traumatic brain injury: Continues to follow Neurology. Continues on lamotrigine and has not had any recent seizure activity. 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 Father Heart attack, Onset Age: 57 Diabetes Social History Housing: Apartment Alcohol intake: current Alcohol intake frequency: a few times a month Alcohol type: beer Patient Tobacco Use Status: Former Tobacco user Quit Date: 2002 Tobacco use type: Cigarette e-Cigarette/Vaping Use: Never Used Second Hand Smoke Exposure: No service: No Current occupational status: employed Current occupation: rt hand /patient care Cognitive needs: No Hearing needs: No Vision needs: Yes (Glasses) Questionnaire PHQ-9 Over the last 2 weeks, how often have you been bothered by any of the following problems? 1. Little interest or pleasure in doing things: not at all 2. Feeling down, depressed, or hopeless: not at all 3. Trouble falling or staying asleep, or sleeping too much: not at all 4. Feeling tired or having little energy: not at all 5. Poor appetite or overeating: not at all 6. Feeling bad about yourself - or that you are a failure or have let yourself or your family down: not at all 7. Trouble concentrating on things, such as reading the newspaper or watching television: not at all 8. Moving or speaking so slowly that other people could have noticed. Or the opposite - being so fidgety or restless that you have been moving around a lot more than usual: not at all 9. Thoughts that you would be better off or of hurting yourself in some way: not at all Total score: 0 Depression Screening Interpretation: Negative Depression Screening Done: Yes 57387 - PHQ-9 Billing: Yes Source: Developed by Drs. Robbin Hancock, Lilibeth Bobby, Epifanio See and colleagues, with an educational phu from [employer] ([place]). Thrive Questionnaire Date Thrive assessed: 03/10/23 I am a: Patient What is your living situation today?: I have a steady place to live Within the past 12 months, did the food you bought not last and you didn't have the money to get more?: Never true Within the past 12 months, did you worry whether your food would run out before you got money to buy more?: Never true Please select the resources that you would like help with: None Currently or been in a relationship where the following occur: no concerns reported AUDIT C Alcohol Use Questionnaire (AUDIT-C) 1. How often do you have a drink containing alcohol?: 2-3 times a week 2. How many drinks containing alcohol do you have on a typical day when you are drinking?: 5 or 6 3. How often do you have six or more drinks on one occasion?: Weekly Total Score: 8 BJORN-7 AMB Questionnaire BJORN-7 Date BJORN - 7 assessed: 03/10/23 Feeling nervous, anxious, or on edge: 0 = Not at all Not being able to stop or control worryin = Not at all Worrying too much about different things: 0 = Not at all Trouble relaxin = Not at all Being so restless that it is hard to sit still: 0 = Not at all Becoming easily annoyed or irritable: 0 = Not at all Feeling afraid as if something awful might happen: 0 = Not at all Total BJORN-7 score (0-4 normal; 5-9 mild; 10-14 moderate; 15-21 severe): 0 Source: Developed by Drs. Robbin Hancock, Lilibeth Bobby, Epifanio See and colleagues, with an educational phu from [employer] ([place]). BJORN-7 Assessment Billing BJORN-7 Assessment Tool: BJORN-7 Assessment 62201 Review of Systems Const Denies headache(s) Eyes Denies loss of vision ENT Denies vertigo, Denies dizziness, Denies headache(s) and Denies sore throat Card Denies chest pain, Denies leg edema and Denies lightheadedness Resp Denies cough, Denies hemoptysis and Denies wheezing GI Denies abdominal pain, Denies melena, Denies constipation, Denies diarrhea and Denies vomiting Denies dysuria, Denies urinary frequency and Denies urinary urgency Musc Denies arthralgias, Denies joint swelling, Denies numbness and Denies tingling Neuro Denies behavioral changes, Denies vertigo, Denies dizziness, Denies headache(s), Denies loss of vision, Denies memory loss, Denies numbness and Denies tingling Psych Denies anxiety, Denies behavioral changes, Denies depression, Denies memory loss and Denies panic attacks Wilbur/Lymph Denies easy bleeding and Denies easy bruising Aller/Immun Denies wheezing Physical exam (Primary Care) Tobacco/Smoking Status: Tobacco use Status Tobacco use date assessed 03/10/23 03/10/23 10:13 Patient Tobacco Use Status Former Tobacco user 03/10/23 10:07 Tobacco use type Cigarette 03/10/23 10:07 e-Cigarette/Vaping Use Never Used 03/10/23 10:07 PHQ-9: PHQ-9 Score PHQ-9: Total score 0 03/10/23 10:23 Depression Screening Interpretation: Negative Thrive Assessment: Date of Thrive Assessment Date Thrive assessed 03/10/23 03/10/23 10:07 Currently or been in a relationship where the following occur: no concerns reported Telehealth Telehealth Location of provider rendering services: practice address Location of patient: address on file Patient Identification confirmed using: Name, : Yes Telehealth method: voice only Patient verbally consented to treatment: Yes Patient verbally consented to billing insurance company: Yes Patient informed of any privacy concerns related to visit: Yes Minutes spent on Phone/Video with Pt.: 11 Assessment and Plan Assessment & Plan (1) Hypothyroidism: Code(s): E03.9 - Hypothyroidism, unspecified Qualifiers: Hypothyroidism type: unspecified Qualified Code(s): E03.9 - Hypothyroidism, unspecified Plan: Continues on levothyroxine 175 mcg. Will recheck his TSH to assure normal. Will make levothyroxine dose adjustments accordingly. (2) TBI (traumatic brain injury): Code(s): S06.9XAA - Unspecified intracranial injury with loss of consciousness status unknown, initial encounter Qualifiers: Encounter type: subsequent encounter Loss of consciousness presence/duration: with LOC of unspecified duration Qualified Code(s): S06.9X9D - Unspecified intracranial injury with loss of consciousness of unspecified duration, subsequent encounter Plan: Had traumatic brain injury many years ago leading to intracranial swelling and epileptic disorder. Needed a intracranial shunt. Continues to follow Neurology (3) Heart palpitations: Code(s): R00.2 - Palpitations Plan: Had recent Holter monitor that did show times of sinus tachycardia though no concerning arrhythmia. He is satisfied with results. (4) Arthritis of bxonwrvo-nsqdkoiqm-drwjojypt joint of right hand: Code(s): M19.031 - Primary osteoarthritis, right wrist Plan: He is status post surgery due to his scaphoid fracture. He reports his wrist pain and swelling is much better. He does have FMLA to take rest when appears. (5) Epilepsy: Code(s): G40.909 - Epilepsy, unspecified, not intractable, without status epilepticus Qualifiers: Epilepsy type: unspecified Intractability: not intractable Status e pilepticus: without status epilepticus Qualified Code(s): G40.909 - Epilepsy, unspecified, not intractable, without status epilepticus Plan: Has had epilepsy since his traumatic brain injury many years ago.. Has not had any seizure activity in quite some time. Continues on lamotrigine and follows at neurologist. (6) Borderline high cholesterol: Code(s): E78.9 - Disorder of lipoprotein metabolism, unspecified Plan: Most recent fasting lipid panel showing borderline high total cholesterol at 202. Will recheck fasting lipid panel Orders: Orders TSH reflex Free T4 Today E03.9 - Hypothyroidism, unspecified Lipid Panel Today E78.9 - Disorder of lipoprotein metabolism, unspecified Comprehensive [place]. Panel Fast Today Z13.1 - Encounter for screening for diabetes mellitus Medications: Refilled levothyroxine 175 mcg PO DAILY 90 tabs 1RF E03.9 - Hypothyroidism, unspecified Discontinued diclofenac sodium Discontinued Reason: Doctor's Order 75 mg PO BID 15 days 30 tabs 3RF M25.531 - Pain in right wrist Coding Level of Care Code Tele Est Pt Level 4 (39721) Diagnoses Hypothyroidism, unspecified type E03.9 Hypothyroidism type: unspecified Traumatic brain injury with loss of consciousness, subsequent encounter S06.9X9D Encounter type: subsequent encounter Loss of consciousness presence/duration: with LOC of unspecified duration Heart palpitations R00.2 Arthritis of tmolpuxj-rgiedakbs-kmswtfkqm joint of right hand M19.031 Nonintractable epilepsy without status epilepticus, unspecified epilepsy type G40.909 Epilepsy type: unspecified Intractability: not intractable Status epilepticus: without status epilepticus Borderline high cholesterol E78.9 Additional Codes BJORN-7 Assessment Billing - BJORN-7 Assessment Tool: BJORN-7 Assessment 40634 ([id number])
== END 2023-03-10 10:54 | disposition home or self-care (01) ==
LOC: HO.HMGH 10:13
PROVIDERS: PCP Physician Assistant; Visit Provider Physician Assistant
DX: E03.9 Hypothyroidism, unspecified (principal); G40.909 Epilepsy, unspecified, not intractable, without status epilepticus; S06.9X9D Unspecified intracranial injury with loss of consciousness of unspecified duration, subsequent encounter; R00.2 Palpitations; M19.031 Primary osteoarthritis, right wrist; E78.9 Disorder of lipoprotein metabolism, unspecified
CPT/HCPCS: 99214

== ENCOUNTER 2023-05-16 10:24 | Outpatient (REF) | payer OTHER, SELFPAY ==
[2023-05-16 13:13] LABS: Alanine Aminotransferase 18 U/L (0-40); Albumin Level 4.4 g/dL (3.5-5.0); Alkaline Phosphatase 66 U/L (39-117); Anion Gap 10 (12-20); Aspartate Amino Transferase 23 U/L (5-37); Bilirubin Total 0.4 mg/dL (0.0-1.0); Blood Urea Nitrogen 13 mg/dL (9-16); Calcium 9.5 mg/dL (8.4-10.2); Carbon Dioxide 31 mmol/L (22-29); Chloride 107 mmol/L (96-108); Cholesterol 175 mg/dL (<200); Estimated Glomerular Filt Rate > 60; Glucose Fasting 95 mg/dL (60-99); HDL Cholesterol 48 mg/dL (>40); LDL Cholesterol Calculated 105 mg/dL (<100); Potassium 3.8 mmol/L (3.3-5.1); Sodium 144 mmol/L (135-145); TSH reflex Free T4 0.23 uIU/mL (0.32-4.0); Total Protein 7.2 g/dL (6.5-8.0); Triglycerides 113 mg/dL (<150)
[2023-05-16 13:44] LABS: Free T4 (Free Thyroxine) 1.07 ng/dL (0.71-1.85)
== END 2023-05-16 10:25 | disposition home or self-care (01) ==
LOC: HO.LAB 10:24
PROVIDERS: PCP Physician Assistant; Visit Provider Physician Assistant
DX: Z13.1 Encounter for screening for diabetes mellitus (principal); E03.9 Hypothyroidism, unspecified; E78.9 Disorder of lipoprotein metabolism, unspecified
CPT/HCPCS: 36415; 80053; 80061; 84439; 84443

== ENCOUNTER 2023-10-03 10:54 | Outpatient (AMB) | payer OTHER, SELFPAY ==
--- NOTE | 2023-10-03 11:48 | MHC.OFFWIV ---
Intake Vital Signs 10/03/23 11:50 Height 5 ft 9 in Weight 168 lb BMI 24.8 BP 118/70 Blood Pressure Location Rt brachial Position Sitting Pulse 95 Pulse Source Pulse Oximeter Pulse Oximetry (%) 98 Oxygen Delivery Method Room Air Intake Visit Reasons: EP- extreme abdominal pain, started at 2am Intake Note: Patient here for extreme abdominal pain that started around 2am this morning, pt states it has worsened since then. Patient Tobacco Use Status: Former Tobacco user Allergies No Known Allergies Allergy (Verified 10/03/23 11:52) Do you need a note to return to daycare/school/sports/work: Yes HPI EP- extreme abdominal pain, started at 2am HPI Details This note is constructed using voice recognition software. While every effort has been made to ensure accuracy, core sticker errors may have been included. The patient is a 42 year old male who presents to the clinic today with abdomen pain. since 02:00 o'clock this morning. He denies fever, chills, nausea, vomiting, diarrhea. He notes that the pain woke him up in his rather sharp in nature and ?burning? he notes that the pain is progressively getting worse and rates it as 6/10. He typically moves his bowels every day, and last move them yesterday. He tried Tylenol and this did nothing for the pain. 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 Father Heart attack, Onset Age: 57 Diabetes Social History Housing: Apartment Alcohol intake: current Alcohol intake frequency: a few times a month Alcohol type: beer Patient Tobacco Use Status: Former Tobacco user Tobacco use type: Cigarette e-Cigarette/Vaping Use: Never Used Second Hand Smoke Exposure: No service: No Current occupational status: employed Current occupation: rt hand /patient care Cognitive needs: No Hearing needs: No Vision needs: Yes (Glasses) Review of Systems Const All systems reviewed & are unremarkable except as noted in HPI and below Physical Exam Vital Signs: Last Vital Signs Pulse 95 10/03/23 11:50 BP 118/70 10/03/23 11:50 Pulse Ox 98 10/03/23 11:50 Oxygen Delivery Method Room Air 10/03/23 11:50 BMI result Body Mass Index 24.8 Const General: cooperative, healthy appearing, comfortable, no acute distress and alert Orientation/consciousness: patient oriented x3 Limitations: no limitations Resp Effort & Inspection: normal respiratory effort and able to speak in complete sentences Auscultation: clear to auscultation bilaterally Cardio Jugular venous distension: no JVD Palpation: normal PMI Rate: regular rate Heart sounds: S1 normal heart sound present, S2 normal heart sound present, no click, no gallops, no murmurs and no rubs GI Other: Positive heel strike Inspection: Yes normal to inspection Palpation (GI): Soft to palpation, Tenderness to palpation present (GI) in the RLQ and Guarding due to palpation present (GI) in the RLQ Percussion: Yes normal to percussion Auscultation: Hypoactive bowel sounds present Skin General skin exam: no rashes or lesions noted, elasticity normal and turgor normal Neuro General: patient oriented x3 Psych Appearance: grossly normal Mental Status: mental status grossly normal Speech and movement: Normal speech and movement present Affect: normal affect Assessment & Plan Assessment & Plan (1) RLQ abdominal pain: Code(s): R10.31 - Right lower quadrant pain Plan: Physical examination and history concerning for appendix involvement. Advised patient be evaluated emergency room as we do not have any available imaging to rule out appendicitis. Patient agrees to have evaluation in the emergency room, and reports that he is able to transport himself. Plan See above for full details and plan. Coding Level of Care Code Est Pt Level 3 (37015) Diagnoses RLQ abdominal pain R10.31
[2023-10-03 11:50] VITALS: BP 118/70; PULSE 95; O2SAT 98; BMI 24.8
== END 2023-10-03 12:12 | disposition home or self-care (01) ==
PROVIDERS: PCP Physician Assistant; Visit Provider Registered Nurse
DX: R10.31 Right lower quadrant pain (principal)
CPT/HCPCS: 99213

== ENCOUNTER 2023-10-03 12:36 | Observation (INO) | payer OTHER, SELFPAY ==
--- NOTE | ~2023-10-03 | CT_ITS ---
EXAMINATION: CT ABDOMEN AND PELVIS WITH CONTRAST CLINICAL INFORMATION: abd pain, concern for appy COMPARISON: None. TECHNIQUE: Multidetector volumetric imaging was performed from the superior aspect of the liver through the pubic symphysis following administration of 85 mL Omnipaque 300 intravenous contrast. Sagittal and coronal reformatted images were obtained on the technologist workstation.. This CT examination was performed using dose optimization techniques as appropriate, variously including the following: *Automated exposure control *Adjustment of mA and/or kV according to patient size (this includes techniques or standardized protocols for targeted exams where dose is matched to indication/reason for exam; i.e. extremities or head) *Use of iterative reconstruction technique DLP: 423 mGy-cm FINDINGS: LUNG BASES: The visualized lung bases are unremarkable. LIVER, GALLBLADDER, AND BILIARY TREE: The liver is normal in size, shape, and attenuation. No focal hepatic lesion or biliary ductal dilatation is present. The gallbladder is unremarkable with no evidence of radiopaque gallstones, gallbladder wall thickening, or obvious pericholecystic inflammatory changes. PANCREAS: Unremarkable. SPLEEN: Prominent measuring 13.4 cm in length. ADRENAL GLANDS: Unremarkable. KIDNEYS AND URETERS: The kidneys are normal in size, shape, and attenuation. No hydronephrosis, hydroureter, or perinephric stranding. No calculi. BLADDER: Unremarkable. GASTROINTESTINAL TRACT: The small and large bowel are unremarkable. The retrocecal appendix is distended measuring 1.2 cm in diameter with mild wall enhancement and surrounding periappendiceal inflammatory change. Tiny appendicolith is seen near the appendiceal orifice. Appearance is consistent with acute appendicitis. There is mild edema in the region of the appendiceal orifice as well. The appendix had a more normal appearance on the prior study. ABDOMINAL WALL: No significant hernia is appreciated. SPRAY GUNNER shunt tubing is seen extending into the left midabdomen LYMPHOVASCULAR STRUCTURES: No lymphadenopathy. The aorta is unremarkable. PELVIC VISCERA: Unremarkable. OSSEOUS STRUCTURES: Unremarkable. CT/CT abdomen pelvis w IV con IMPRESSION: Findings consistent with acute appendicitis with a distended retrocecal appendix measuring 1.2 cm in diameter with surrounding periappendiceal inflammatory changes.
[2023-10-03 12:45] VITALS: BP 146/85; PULSE 60; RESP 18; TEMP 36.7; O2SAT 100; BMI 23.6
--- NOTE | 2023-10-03 12:48 | ED_ITS ---
HPI - General Adult General Chief complaint: Abdominal Pain Stated complaint: abd pain Time Seen by Provider: 10/03/23 17:31 Source: patient Mode of arrival: ambulatory Limitations: no limitations History of Present Illness ED Provider: Dr. Adilene Jaramillo HPI narrative: patient comes to the emergency room complaining of right lower quadrant pain that started approximately 15 hours ago. Patient states that the pain woke him up from sleep. Patient states that he has a constant right lower quadrant pain, however over the last few hours it has been intensifying. This morning, patient went to urgent care and they sent him to the emergency room due to significant pain to palpation over the right lower quadrant. Patient denies any nausea vomiting or diarrhea. Patient states that he has not eaten anything since earlier this morning, had assist few sips of coffee. Patient states that he does feel hungry. Related Data Home Medications ?Medication ?Instructions ?Recorded ?Confirmed lamotrigine 200 mg tablet 200 mg PO BID 01/04/20 10/03/23 acetaminophen 500 mg tablet 1,000 mg PO DAILY PRN Pain 10/03/23 10/03/23 (Tylenol Extra Strength) ibuprofen 200 mg tablet 400 mg PO DAILY PRN Pain 10/03/23 10/03/23 levothyroxine 150 mcg tablet 150 mcg PO DAILY@0630 10/03/23 10/03/23 Previous Rx's ?Medication ?Instructions ?Recorded docusate sodium 100 mg capsule 100 mg PO BID #30 caps 10/04/23 (Colace) oxycodone 5 mg tablet 5 mg PO Q4H PRN pain (scale score 10/04/23 7-10) #24 tabs Allergies Allergy/AdvReac Type Severity Reaction Status Date / Time No Known Allergies Allergy Verified 10/04/23 13:33 Review of Systems 2 Review of Systems: Constitutional : No Weight loss, No Fever, No Chills, No Night Sweats, No Fatigue, No Malaise ENT/Mouth : No Hearing loss, No Ear Pain, No Nasal Congestion, No Sinus Pain, No Hoarseness, No sore throat, No Rhinorrhea, No Swallowing Difficulty Eyes: No Eye Pain, No Swelling, No Redness, No Foreign Body, No Discharge, No Vision Changes Cardiovascular : No Chest Pain, No SOB, No Dyspnea on Exertion, No Orthopnea, No Edema, No Palpitations Respiratory : No Cough, No Sputum, No Wheezing, No Smoke Exposure, No Dyspnea Gastrointestinal : No Nausea, No Vomiting, No Diarrhea, No Constipation, Complaining of right lower quadrant pain. Genitourinary : no irregular bleeding, No Dysuria, No Urinary Frequency, No Hematuria, No Urinary Incontinence, No Urgency, No Flank Pain, No Urinary Flow Changes, No Hesitancy Musculoskeletal : No joint pain, No Myalgias, No Joint Swelling Skin : No Skin Lesions, No rash Neuro : No Weakness, No Numbness, No Paresthesias, No Loss of Consciousness, No Dizziness, No Headache Psych : No Anxiety/Panic, No Depression, No SI/HI/AH/VH, No Social Issues, Heme/Lymph: No Bruising, No Bleeding,No Lymphadenopathy Endocrine : No Polyuria, No Polydipsia, No Temperature Intolerance PMFSH Past Medical History Medical History Epilepsy Renal cyst, right 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 Father Heart attack, Onset Age: 57 Diabetes Social History Social History Housing: Apartment Alcohol intake: current Alcohol intake frequency: a few times a month Alcohol type: beer Patient Tobacco Use Status: Former Tobacco user Tobacco use type: Cigarette Smoked in Last 30 Days: No e-Cigarette/Vaping Use: Never Used Second Hand Smoke Exposure: No Use of substances other than those prescribed or required for medical reasons: Yes Substance Use Type Other:: Smoking and Edibles Substance Use Frequency: Daily Currently Displaying Signs/Symptoms of Drug Intoxication Withdrawal: No Are you DNR?: No Advance Directives: No Advance Directives Information Provided: No Do you have a plan to hurt others: No Plan Nutrition Risks: No Nutritional Risk service: No Current occupational status: employed Current occupation: rt hand /patient care Cognitive needs: No Hearing needs: No Vision needs: Yes (Glasses) Physical Exam ED Vital Signs: Vital Signs - 24 hr 10/03/23 12:45 10/03/23 17:16 10/03/23 19:33 Temperature 98.1 F 98.3 F 97.8 F Pulse Rate 60 56 62 Respiratory Rate 18 20 18 Blood Pressure 146/85 H 138/75 108/61 Pulse Oximetry 100 100 98 Oxygen Delivery Method Room Air Room Air BMI result Body Mass Index 23.6 Const Other: Appearance: Alert. Oriented X3. No acute distress. Eyes: Pupils equal, round and reactive to light. ENT: Pharynx normal. Neck: Normal inspection. Neck supple. No lymph nodes noted. No crepitus CVS: Normal heart rate and rhythm. Pulses normal. Normal S1 and S2 Respiratory: No respiratory distress. Breath sounds normal. No Wheezing. No rales Abdomen: Soft , right tenderness to palpation in the right lower quadrant, no tenderness to palpation in the inguinal area or scrotum or testicles Skin: Skin warm and dry. Normal skin color. Normal skin turgor. Extremities: No lower extremity edema. No Lacerations. No Rash Neuro: Oriented X 3. No motor deficit. No sensory deficit. Moving all extremities. No slurred speech. CN 2 through 12 grossly intact Psych: calm, cooperative, normal affect Course Course Course Narrative: RME performed by Xiao Kinsey PA-C. Patient is a 42 year old assigned male at presenting to the emergency department with abdominal pain. Patient states over the last few days he has had some abdominal pain that is new for him. Detailed physical exam and review of systems are deferred to the senior information developer. Labs ordered. Patient placed back in the waiting room pending room availability and results. Medications Administered Generic Name Dose Route Start Last Admin Trade Name Freq PRN Reason Stop Dose Admin Hydromorphone HCl 0.5 mg 10/03/23 20:11 10/04/23 07:48 Hydromorphone Hcl 1 Mg/Ml Syringe IVPUSH 0.5 mg Q4H PRN Administration Pain, Severe (Pain Scale 7-10) Protocol Lactated Ringer's 1,000 mls @ 125 mls/hr 10/03/23 20:30 10/05/23 06:33 Lr IVCONT Not Given .Q8H [facility] Ketorolac Tromethamine 15 mg 10/04/23 16:27 10/04/23 23:43 Ketorolac Tromethamine 15 Mg/Ml Vial IVPUSH 15 mg Q6H PRN Administration abdominal pain Lamotrigine 200 mg 10/04/23 21:00 10/05/23 07:26 Lamotrigine 100 Mg Tablet PO 200 mg BID HÉCTOR Administration Levothyroxine Sodium 150 mcg 10/05/23 06:30 10/05/23 06:33 Levothyroxine Sodium 150 Mcg Tablet PO 150 mcg DAILY@0630 HÉCTOR Administration Oxycodone HCl 5 mg 10/04/23 16:27 10/05/23 07:26 Oxycodone Hcl Immed Release 5 Mg Tablet PO 5 mg Q4H PRN Administration Pain, Moderate(Pain Scale 4-6) Sodium Chloride 3 ml 10/04/23 00:00 10/05/23 07:26 0.9 % Sodium Chloride Flush 3 Ml Syringe IVFLUSH Not Given QSHIFT [facility] Discontinued Medications Generic Name Dose Route Start Last Admin Trade Name Freq PRN Reason Stop Dose Admin Sodium Chloride 1,000 mls @ 999 mls/hr 10/03/23 17:30 10/03/23 18:59 Ns IV 10/03/23 18:30 Infused .Q1H1M HÉCTOR Infusion Sodium Chloride 1,000 mls @ 999 mls/hr 10/03/23 20:05 10/03/23 21:49 Ns IVCONT 10/03/23 21:05 Infused .Q1H1M ONE Infusion Piperacillin Sod/Tazobactam 50 mls @ 100 mls/hr 10/03/23 20:05 10/03/23 21:05 Sod 3.375 gm/ Sodium Chloride IV 10/03/23 20:34 Infused ONCE ONE Infusion Piperacillin Sod/Tazobactam 50 mls @ 100 mls/hr 10/04/23 03:00 10/04/23 16:59 Sod 3.375 gm/ Sodium Chloride IV Not Given Q6H HÉCTOR Iohexol 100 ml 10/03/23 18:37 10/03/23 18:37 Iohexol 350 Mg/Ml 100 Ml Infus..Btl IV 10/03/23 18:38 85 ml ONCE ONE Administration Morphine Sulfate 4 mg 10/03/23 17:23 10/03/23 17:58 Morphine Sulfate 4 Mg/Ml Cartridge IVPUSH 10/03/23 17:24 4 mg ONCE ONE Administration Protocol Ondansetron HCl 4 mg 10/03/23 17:23 10/03/23 17:58 Ondansetron Hcl 4 Mg/2 Ml Vial IVPUSH 10/03/23 17:24 4 mg ONCE ONE Administration Medical Decision Making Medical Decision Making [facility] Narrative: - physical exam is concerning for acute appendicitis - patient receiving IV fluids, morphine and Zofran - CT scan pending - my interpretation of labs: Normal hematology, normal chemistry, urinalysis shows a small amount of blood in the urine which is chronic for the patient. This has already been addressed by Urology. - my interpretation of CT scan, appendicitis. - CT scan report, 1.2 cm dilated retrocecal appendix, consistent with acute appendicitis - patient receiving IV fluids, Zofran and Zosyn. Patient had good pain control with 4 mg of morphine. - I discussed the patient with Dr. Brumfield,patient being admitted Differential Diagnosis Differential Diagnoses: The differential diagnosis associated with the presentation includes Admission/Observation Consideration of admission/observation: Escalation of care including admission/observation considered Consult Healthcare Provider Management of the patient was discussed with: Track Leader Lab Data [facility] Lab Attestation statement: I reviewed the patient's lab results. 10/03/23 13:13 10/03/23 13:13 Labs: Lab Results 10/03/23 Range/Units 13:13 WBC 10.2 (4.8-10.8) X10*3/uL RBC 4.30 L (4.60-5.80) X10*6/uL Hgb 13.7 L (14.0-18.0) g/dl Hct 39.8 L (42.0-52.0) % MCV 92.6 (80.0-98.0) fL MCH 31.9 (27.0-33.0) pg MCHC 34.4 (31.0-36.0) g/dl RDW 12.6 (11.0-16.0) % Plt Count 225 (160-400) X10*3/uL MPV 8.7 L (9.4-12.4) fL Immature Gran % (Auto) 0.3 (0.0-0.4) % Neut % (Auto) 80.6 H (45-73) % Lymph % (Auto) 11.0 L (20-40) % [place] % (Auto) 7.4 (2-11) % Eos % (Auto) 0.5 (0-4) % Baso % (Auto) 0.2 (0-2) % Lymph # (Auto) 1.1 L (1.2-4.9) X10*3/uL [place] # (Auto) 0.8 (0.1-1.2) X10*3/uL Eos # (Auto) 0.1 (0.0-0.4) X10*3/uL Baso # (Auto) 0.0 (0.0-0.2) X10*3/uL Abs Immat Gran (auto) 0.03 (0.00-0.03) X10*3/uL Absolute Neuts (auto) 8.2 (2.0-8.3) x10*3/uL Absolute Nucleated RBC 0.000 (0.0-0.012) X10*3/uL Nucleated RBC % (auto) 0.0 (0.0-0.2) /100WBC Sodium 139 (135-145) mmol/L Potassium 3.8 (3.3-5.1) mmol/L Chloride 104 (96-108) mmol/L Carbon Dioxide 27 (22-29) mmol/L Anion Gap 12 (12-20) BUN 11 (9-16) mg/dL Creatinine 0.91 (0.5-1.4) mg/dL Estim Creat Clear Calc 105.7 Estimated GFR > 60 Random Glucose 117 H (60-115) mg/dL Calcium 9.5 (8.4-10.2) mg/dL Magnesium 1.7 (1.6-2.6) mg/dL Total Bilirubin 0.7 (0.0-1.0) mg/dL AST 23 (5-37) U/L ALT 20 (0-40) U/L Alkaline Phosphatase 60 (39-117) U/L Total Protein 7.3 (6.5-8.0) g/dL Albumin 4.5 (3.5-5.0) g/dL Urine Color Yellow Urine Appearance Clear Urine pH 7.5 (5.0-9.0) Ur Specific [place] <= 1.005 (1.005-1.025) Urine Protein Negative (Neg-Trace) mg/dL Urine Glucose (UA) Negative (Negative) mg/dL Urine Ketones Negative (Negative) mg/dL Urine Blood Small (1+) H (Negative) Urine Nitrite Negative (Negative) Ur Leukocyte Esterase Negative (Negative) Urine RBC 6-10 H (0-2) /HPF Urine WBC 0-5 (0-5) /HPF Ur Squamous Epith Cells 0-2 (0-2) /HPF Urine Bacteria None Seen (None Seen) Hyaline Casts 0-2 (0-2) /LPF Influenza Type A (PCR) NEGATIVE (Negative) Influenza Type B (PCR) NEGATIVE (Negative) RSV RNA Qual (PCR) NEGATIVE (Negative) SARS-CoV-2 RNA (RT-PCR) NEGATIVE (Negative) Independent Interpretation I performed an independent interpretation of an: CT Scan Radiology Impression Discussion of test interpretation with radiology: I have reviewed the radiologist's reading. Radiologist Impression: LUNG BASES: The visualized lung bases are unremarkable. LIVER, GALLBLADDER, AND BILIARY TREE: The liver is normal in size, shape, and attenuation. No focal hepatic lesion or biliary ductal dilatation is present. The gallbladder is unremarkable with no evidence of radiopaque gallstones, gallbladder wall thickening, or obvious pericholecystic inflammatory changes. PANCREAS: Unremarkable. SPLEEN: Prominent measuring 13.4 cm in length. ADRENAL GLANDS: Unremarkable. KIDNEYS AND URETERS: The kidneys are normal in size, shape, and attenuation. No hydronephrosis, hydroureter, or perinephric stranding. No calculi. BLADDER: Unremarkable. GASTROINTESTINAL TRACT: The small and large bowel are unremarkable. The retrocecal appendix is distended measuring 1.2 cm in diameter with mild wall enhancement and surrounding periappendiceal inflammatory change. Tiny appendicolith is seen near the appendiceal orifice. Appearance is consistent with acute appendicitis. There is mild edema in the region of the appendiceal orifice as well. The appendix had a more normal appearance on the prior study. ABDOMINAL WALL: No significant hernia is appreciated. OUTSIDE SALESPERSON shunt tubing is seen extending into the left midabdomen LYMPHOVASCULAR STRUCTURES: No lymphadenopathy. The aorta is unremarkable. PELVIC VISCERA: Unremarkable. OSSEOUS STRUCTURES: Unremarkable. CT/CT abdomen pelvis w IV con IMPRESSION: Findings consistent with acute appendicitis with a distended retrocecal appendix measuring 1.2 cm in diameter with surrounding periappendiceal inflammatory changes. Independent Historian Clinical information obtained from an independent historian. History obtained from or confirmed by: Spouse Critical Care Time Critical Care Time Critical Care Time: Yes Total Critical Care Time: 60 Attestation: I have personally provided critical care time. Time includes review of lab data, radiology results, discussion with consultants, and monitoring for potential decompensation. Intervention performed as documented. Discharge Plan Discharge Clinical Impression: Acute appendicitis Patient Disposition: Admitted As Inpatient Interventions: Admission Worksheet (ED) Last Done: 10/04/23 06:13 Discharge Date/Time: 10/04/23 08:50
[2023-10-03 13:19] LABS: MANUAL DIFF FLAG NO
[2023-10-03 13:26] LABS: Basophils Percent Auto 0.2 % (0-2); Eosinophils Absolute Auto 0.1 X10*3/uL (0.0-0.4); Eosinophils Percent Auto 0.5 % (0-4); Hematocrit 39.8 % (42.0-52.0); Hemoglobin 13.7 g/dl (14.0-18.0); Imm Gran Abs Auto 0.03 X10*3/uL (0.00-0.03); Imm Gran Pct Auto 0.3 % (0.0-0.4); Lymphocytes Absolute Auto 1.1 X10*3/uL (1.2-4.9); Mean Corpuscular HGB Conc 34.4 g/dl (31.0-36.0); Mean Corpuscular Hemoglobin 31.9 pg (27.0-33.0); Mean Corpuscular Volume 92.6 fL (80.0-98.0); Mean Platelet Volume 8.7 fL (9.4-12.4); Monocytes Absolute Auto 0.8 X10*3/uL (0.1-1.2); Monocytes Percent Auto 7.4 % (2-11); Neutrophils Absolute Auto 8.2 x10*3/uL (2.0-8.3); Neutrophils Percent Auto 80.6 % (45-73); Platelet Count 225 X10*3/uL (160-400); Red Cell Distribution Width 12.6 % (11.0-16.0); White Blood Count 10.2 X10*3/uL (4.8-10.8)
[2023-10-03 13:29] LABS: Appearance Urine Clear; Color Urine Yellow; Glucose Urine UA Negative (Negative); Leukocyte Esterase Urine Negative (Negative); Nitrite Urine Negative (Negative); PH 7.5 (5.0-9.0); Specific Gravity - Urine <= 1.005 (1.005-1.025); UMIC TRIGGER UACC YES; Urine Blood Small (1+) (Negative); Urine Ketones Negative (Negative); Urine Protein Negative (Neg-Trace)
[2023-10-03 13:35] LABS: Bacteria Urine None Seen (None Seen); Hyaline Casts Urine 0-2 /LPF (0-2); Squamous Epithelial Cell Urine 0-2 /HPF (0-2); WBC Urine 0-5 /HPF (0-5)
[2023-10-03 13:37] LABS: Alanine Aminotransferase 20 U/L (0-40); Albumin Level 4.5 g/dL (3.5-5.0); Alkaline Phosphatase 60 U/L (39-117); Anion Gap 12 (12-20); Aspartate Amino Transferase 23 U/L (5-37); Bilirubin Total 0.7 mg/dL (0.0-1.0); Blood Urea Nitrogen 11 mg/dL (9-16); Calcium 9.5 mg/dL (8.4-10.2); Carbon Dioxide 27 mmol/L (22-29); Chloride 104 mmol/L (96-108); Creatinine Clr Calc Pharmacy 105.7; Estimated Glomerular Filt Rate > 60; Glucose Random 117 mg/dL (60-115); Magnesium 1.7 mg/dL (1.6-2.6); Potassium 3.8 mmol/L (3.3-5.1); Sodium 139 mmol/L (135-145); Total Protein 7.3 g/dL (6.5-8.0)
[2023-10-03 14:00] LABS: Influenza A PCR NEGATIVE (Negative); Influenza B PCR NEGATIVE (Negative); Resp Syncy Virus RNA Qual PCR NEGATIVE (Negative); SARS COV2 PCR INHOUSE NEGATIVE (Negative)
[2023-10-03 17:16] VITALS: BP 138/75; PULSE 56; RESP 20; TEMP 36.8; O2SAT 100
[2023-10-03] MEDS: Morphine Sulfate 4 MG/ML CARTRIDGE IVPUSH (17:58)
[2023-10-03] MEDS: 0.9 % Sodium Chloride 1,000 ML 999 ML IV (17:58)
[2023-10-03] MEDS: ondansetron HCL 4 MG/2 ML VIAL IVPUSH (17:58)
[2023-10-03] MEDS: iohexoL 350 MG/ML 100 ML INFUS..BTL IV (18:37)
[2023-10-03 19:33] VITALS: BP 108/61; PULSE 62; RESP 18; TEMP 36.6; O2SAT 98
[2023-10-03] MEDS: Piperacillin Sodium/Tazobactam 3.375 GM in 0.9 % Sodium Chloride 50 ML IV (20:28)
[2023-10-03] MEDS: 0.9 % Sodium Chloride 1,000 ML 999 ML IVCONT (20:28)
--- NOTE | 2023-10-03 20:52 | PHA.MEDREC ---
Addendum entered by Bryant Melo [facility] 10/03/23 21:30: MED REC DOUBLE CHECKED BY [facility] Original Note: Pharmacy Consult ? Medication Reconciliation Pharmacy has completed the medication reconciliation. Spoke to patient to confirm med list.
[2023-10-03] MEDS: HYDROmorphone HCl 1 MG/ML SYRINGE 0.5 MG IVPUSH (21:58)
[2023-10-03] MEDS: Lactated Ringers 1,000 ML 125 ML IVCONT (22:00)
--- NOTE | 2023-10-03 22:13 | PC.NURSE ---
Pt medicated per APR for 8 RLQ pain. Ambulatory to bathroom with steady gait. IV LR hung and infusing without difficulty. Awaiting bed assignment for admission, aware of plan of care.
--- NOTE | 2023-10-03 22:55 | PC.NURSE ---
Pt reports positive pain relief from previously administered pain med, resting comfortably at this time. NPO, awaiting bed assignment for admission. Will continue to monitor.
[2023-10-04] VITALS (14 sets, daily range): BP systolic 100–144; BP diastolic 57–86; PULSE 52–87; RESP 12–18; TEMP 36.1–36.7; O2SAT 96–100; BMI 24.4
[2023-10-04] MEDS: Piperacillin Sodium/Tazobactam 3.375 GM in 0.9 % Sodium Chloride 50 ML IV ×2 (03:11→09:46)
[2023-10-04] MEDS: Lactated Ringers 1,000 ML 125 ML IVCONT ×2 (05:10→16:47)
[2023-10-04] MEDS: HYDROmorphone HCl 1 MG/ML SYRINGE 0.5 MG IVPUSH (07:48)
--- NOTE | 2023-10-04 07:48 | P.HPGS_ITS ---
History of Present Illness History of Present Illness Date of Service: 10/04/23 <Rajwinder Mathias PA-C - Last Filed: 10/04/23 10:52> 10/04/23 <Nadir Brumfield MD - Last Filed: 10/04/23 10:05> Chief complaint: abd pain <Rajwinder Mathias PA-C - Last Filed: 10/04/23 10:52> Narrative: Khalif Kraus is a 42 year old male with PMH significant for NUCLEAR MEDICINE SPECIALIST shunt, epilepsy who presented to the ED with c/o acute onset of abdominal pain. The pain is in the RLQ. It began Tuesday night around 2am and awoke him out of sleep. The pain has been constant and worsening in severity. He was seen in urgent care and they sent him to the emergency room for further evaluation. Patient denies any fevers, chills, nausea, vomiting or diarrhea, sick contacts. He denies similar episodes of previous pain. He has a history of RIH repair. In the ED work up included CBC, BMP and LFTs which were WNL. CT scan abd/pelvis showed thickened appendix with appendicolith and surrounding periappendiceal inflammatory changes. He reports continued RLQ abd pain this morning. <Rajwinder Mathias PA-C - Last Filed: 10/04/23 10:52> Review of Systems Constitutional: Constitutional: Denies chills and Denies fever(s) <Rajwinder Mathias PA-C - Last Filed: 10/04/23 10:52> ENT: Denies dizziness <Rajwinder Mathias PA-C - Last Filed: 10/04/23 10:52> Cardiovascular: Cardiovascular: Denies chest pain and Denies dyspnea <Rajwinder Mathias PA-C - Last Filed: 10/04/23 10:52> Respiratory: Respiratory: Denies cough and Denies dyspnea <LOLLY Mohamud Last Filed: 10/04/23 10:52> Gastrointestinal: Gastrointestinal: Reports as per HPI <LOLLY Mohamud Last Filed: 10/04/23 10:52> Musculoskeletal: Musculoskeletal: Denies numbness <IVANNA Mohamud Last Filed: 10/04/23 10:52> Integumentary/Breasts: Skin/Breast: Denies rash and Denies jaundice <Rajwinder Mathias PA-C - Last Filed: 10/04/23 10:52> Neurologic: Denies dizziness and Denies numbness <Rajwinder Mathias PA-C - Last Filed: 10/04/23 10:52> PMFSH Past Medical History Medical History: Medical History Epilepsy Renal cyst, right 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 Father Heart attack, Onset Age: 57 Diabetes <Rajwinder Mathias PA-C - Last Filed: 10/04/23 10:52> Surgical History Surgical History: Surgical History (Updated 03/10/23 @ 10:42 by Nasir Perkins PA-C) H/O right wrist surgery History of hernia surgery <Rajwinder Mathias PA-C - Last Filed: 10/04/23 10:52> Social History Social History: Social History Housing: Apartment Alcohol intake: current Alcohol intake frequency: a few times a month Alcohol type: beer Patient Tobacco Use Status: Former Tobacco user Tobacco use type: Cigarette Smoked in Last 30 Days: No e-Cigarette/Vaping Use: Never Used Second Hand Smoke Exposure: No Advance Directives: No Advance Directives Information Provided: No Do you have a plan to hurt others: No Plan Nutrition Risks: No Nutritional Risk service: No Current occupational status: employed Current occupation: rt hand /patient care Cognitive needs: No Hearing needs: No Vision needs: Yes (Glasses) <Rajwinder Mathias PA-C - Last Filed: 10/04/23 10:52> Meds Allergies/Adverse reactions: Allergies Allergy/AdvReac Type Severity Reaction Status Date / Time No Known Allergies Allergy Verified 10/03/23 12:49 <Rajwinder Mathias PA-C - Last Filed: 10/04/23 10:52> Active Medications: Current Medications Acetaminophen (Acetaminophen 325 Mg Tablet) 650 mg PO Q6H PRN PRN Reason: Pain, Mild (Pain Scale 1-3), fever or headache Al Hydroxide/Mg Hydroxide (Magnesium Hydrox/Alum Hydrox 30 Ml Oral.Susp) 30 ml PO Q4H PRN PRN Reason: Heartburn Calcium Carbonate (Calcium Carbonate 750 Mg Tab.Chew) 750 mg PO Q4H PRN PRN Reason: Heartburn Hydromorphone HCl (Hydromorphone Hcl 1 Mg/Ml Syringe) 0.5 mg IVPUSH Q4H PRN; Protocol PRN Reason: Pain, Severe (Pain Scale 7-10) Last Admin: 10/04/23 07:48 Dose: 0.5 mg Piperacillin Sod/Tazobactam (Sod 3.375 gm/ Sodium Chloride) 50 mls @ 100 mls/hr IV Q6H [facility] Last Infusion: 10/04/23 03:41 Dose: Infused Lactated Ringer's (Lr) 1,000 mls @ 125 mls/hr IVCONT .Q8H [facility] Last Admin: 10/04/23 05:10 Dose: 125 mls/hr Magnesium Hydroxide (Milk Of Magnesia 30 Ml Oral.Susp) 30 ml PO DAILY PRN PRN Reason: Constipation Melatonin (Melatonin 3 Mg Tablet) 6 mg PO BEDTIME PRN PRN Reason: Insomnia Ondansetron HCl (Ondansetron Hcl 4 Mg/2 Ml Vial) 4 mg IVPUSH Q8H PRN PRN Reason: Nausea and Vomiting Sodium Chloride (0.9 % Sodium Chloride Flush 3 Ml Syringe) 3 [facility] Last Admin: 10/04/23 00:35 Dose: Not Given <Rajwinder Mathias PA-C - Last Filed: 10/04/23 10:52> Home medications: Home Medications ?Medication ?Instructions ?Recorded ?Confirmed ?Last Taken ?Type lamotrigine 200 mg tablet 200 mg PO BID 01/04/20 10/03/23 10/02/23 History acetaminophen 500 mg tablet 1,000 mg PO DAILY PRN Pain 10/03/23 10/03/23 Unknown History (Tylenol Extra Strength) ibuprofen 200 mg tablet 400 mg PO DAILY PRN Pain 10/03/23 10/03/23 Unknown History levothyroxine 150 mcg tablet 150 mcg PO DAILY@0630 10/03/23 10/03/23 10/03/23 History <LOLLY Mohamud Last Filed: 10/04/23 10:52> Physical Exam Vital Signs: Vital Signs: Last Vital Signs Temp 97.7 F 10/04/23 05:14 Pulse 56 10/04/23 07:43 Resp 14 10/04/23 07:43 BP 110/57 L 10/04/23 07:43 Pulse Ox 97 10/04/23 07:43 O2 Del Method Room Air 10/04/23 07:43 BMI result Body Mass Index 23.6 <Rajwinder Mathias PA-C Donna Last Filed: 10/04/23 10:52> Const: General: comfortable, no acute distress and alert <Rajwinder Mathias PA-C Donna Last Filed: 10/04/23 10:52> Nutritional Appearance: well nourished <Rajwinder Mathias PA-C Donna Last Filed: 10/04/23 10:52> Orientation/consciousness: patient oriented x3 <Rajwinder Mathias PA-C Donna Last Filed: 10/04/23 10:52> Resp: Effort & Inspection: normal respiratory effort <Rajwinder Mathias PA-C Donna Last Filed: 10/04/23 10:52> GI: Inspection: Yes normal to inspection and No distended <Rajwinder Mathias PA-C Donna Last Filed: 10/04/23 10:52> Palpation (GI): Soft to palpation, Tenderness to palpation present (GI) in the RLQ (moderate); with no rebound tenderness and Rovsing's sign negative and no guarding <Rajwinder Mathias PA-C Donna Last Filed: 10/04/23 10:52> Skin: General skin exam: no rashes or lesions noted <LOLLY Mohamud Last Filed: 10/04/23 10:52> Neuro: General: patient oriented x3 and moves all extremities <LOLLY Mohamud Last Filed: 10/04/23 10:52> Results Results Labs: Short CBC 10/03/23 Range/Units 13:13 WBC 10.2 (4.8-10.8) X10*3/uL Hgb 13.7 L (14.0-18.0) g/dl Hct 39.8 L (42.0-52.0) % Plt Count 225 (160-400) X10*3/uL BMP 10/03/23 13:13 Sodium 139 Potassium 3.8 Chloride 104 Carbon Dioxide 27 BUN 11 Creatinine 0.91 Calcium 9.5 Liver Function 10/03/23 Range/Units 13:13 Total Bilirubin 0.7 (0.0-1.0) mg/dL AST 23 (5-37) U/L ALT 20 (0-40) U/L Alkaline Phosphatase 60 (39-117) U/L Albumin 4.5 (3.5-5.0) g/dL Urine 10/03/23 Range/Units 13:13 Urine Color Yellow Urine Appearance Clear Urine pH 7.5 (5.0-9.0) Ur Specific [place] <= 1.005 (1.005-1.025) Urine Protein Negative (Neg-Trace) mg/dL Urine Glucose (UA) Negative (Negative) mg/dL <Rajwinder Mathias PA-C - Last Filed: 10/04/23 10:52> Abdomen CT scan report/results: report reviewed and image reviewed <LOLLY Mohamud Last Filed: 10/04/23 10:52> Assessment and Plan (1) Acute appendicitis: Status: Acute <LOLLY Mohamud Last Filed: 10/04/23 10:52> Khalif Kraus is a 42 year old male with PMH significant for NUCLEAR MEDICINE SPECIALIST shunt, epilepsy with c/o RLQ pain for 1 day with RLQ tenderness and CT scan showing thickened appendix. Picture consistent with early acute appendicitis. Given presence of appendicolith, it was recommended to proceed with laparoscopic appendectomy, possible open. Risks, benefits, alternatives of laparoscopic possible open appendectomy were reviewed with the patient and included but not limited to bleeding, infection, numbness, pain, scarring, bowel or bladder injury or staple line leak and the patient wishes to proceed. He was added onto the OR schedule for today. <LOLLY oMhamud Last Filed: 10/04/23 10:52> Quality Stroke Does the patient have a stroke diagnosis?: No <Nadir Brumfield MD - Last Filed: 10/04/23 10:05> VTE Prior VTE?: No <Nadir Brumfield MD - Last Filed: 10/04/23 10:05> VTE Risk Level:: Surgical - low <Rajwinder Mathias PA-C - Last Filed: 10/04/23 10:52> VTE Device Contraindication: Treatment Not Indicated <Rajwinder Mathias PA-C - Last Filed: 10/04/23 10:52> VTE Drug Contraindication: Treatment Not Indicated <Rajwinder Mathias PA-C - Last Filed: 10/04/23 10:52> Procedures Date of Service Date of Service: 10/04/23 <Rajwinder Mathias PA-C - Last Filed: 10/04/23 10:52> 10/04/23 <Nadir Brumfield MD - Last Filed: 10/04/23 10:05>
[2023-10-04] MEDS: 0.9 % Sodium Chloride Flush 3 ML SYRINGE IVFLUSH ×2 (09:45→23:44)
--- NOTE | 2023-10-04 10:19 | MHC.CM.PN ---
PT IS INDEPENDENT WILL NOT NEED SERVIES RAMIRO COULTER HAS OWN RIDE HOME DC PLAN HOME NO SERVIES
--- NOTE | 2023-10-04 14:16 | HO.ANESPROP2 ---
HPI - Anesthesia Eval Consult details Narrative: lap appwilfredo PMFSH Active Problems Active Problems: All Active Problems Acute appendicitis (Acute) Borderline high cholesterol (Acute) Epilepsy (Acute) Heart palpitations (Acute) Lumbar spine strain (Acute) TBI (traumatic brain injury) (Acute) Microscopic hematuria (Acute) Arthritis of iezvizrm-aeokombdt-fbqzrcgmg joint of right hand (Acute) Dermatitis (Acute) History of brain shunt (Acute) Annual physical exam (Acute) Hypothyroidism (Acute) RUQ abdominal pain (Acute) Screening for diabetes mellitus (DM) (Acute) Wrist pain, right (Acute) Past Medical History Medical History Epilepsy Renal cyst, right 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 Father Heart attack, Onset Age: 57 Diabetes Family history of problems with anesthesia: No Surgical History Surgical History H/O right wrist surgery History of hernia surgery History of Problems with Anesthesia: Yes Social History Social History Housing: Apartment Alcohol intake: current Alcohol intake frequency: a few times a month Alcohol type: beer Patient Tobacco Use Status: Former Tobacco user Tobacco use type: Cigarette Smoked in Last 30 Days: No e-Cigarette/Vaping Use: Never Used Second Hand Smoke Exposure: No Use of substances other than those prescribed or required for medical reasons: Yes Substance Use Type Other:: Smoking and Edibles Substance Use Frequency: Daily Are you DNR?: No Advance Directives: No Advance Directives Information Provided: No Do you have a plan to hurt others: No Plan Nutrition Risks: No Nutritional Risk service: No Current occupational status: employed Current occupation: rt hand /patient care Cognitive needs: No Hearing needs: No Vision needs: Yes (Glasses) Meds Allergies Allergy/AdvReac Type Severity Reaction Status Date / Time No Known Allergies Allergy Verified 10/04/23 13:33 Active Medications: Current Medications Acetaminophen (Acetaminophen 325 Mg Tablet) 650 mg PO Q6H PRN PRN Reason: Pain, Mild (Pain Scale 1-3), fever or headache Al Hydroxide/Mg Hydroxide (Magnesium Hydrox/Alum Hydrox 30 Ml Oral.Susp) 30 ml PO Q4H PRN PRN Reason: Heartburn Calcium Carbonate (Calcium Carbonate 750 Mg Tab.Chew) 750 mg PO Q4H PRN PRN Reason: Heartburn Hydromorphone HCl (Hydromorphone Hcl 1 Mg/Ml Syringe) 0.5 mg IVPUSH Q4H PRN; Protocol PRN Reason: Pain, Severe (Pain Scale 7-10) Last Admin: 10/04/23 07:48 Dose: 0.5 mg Piperacillin Sod/Tazobactam (Sod 3.375 gm/ Sodium Chloride) 50 mls @ 100 mls/hr IV Q6H [facility] Last Infusion: 10/04/23 10:32 Dose: Infused Lactated Ringer's (Lr) 1,000 mls @ 125 mls/hr IVCONT .Q8H [facility] Last Infusion: 10/04/23 13:15 Dose: Infused Magnesium Hydroxide (Milk Of Magnesia 30 Ml Oral.Susp) 30 ml PO DAILY PRN PRN Reason: Constipation Melatonin (Melatonin 3 Mg Tablet) 6 mg PO BEDTIME PRN PRN Reason: Insomnia Ondansetron HCl (Ondansetron Hcl 4 Mg/2 Ml Vial) 4 mg IVPUSH Q8H PRN PRN Reason: Nausea and Vomiting Sodium Chloride (0.9 % Sodium Chloride Flush 3 Ml Syringe) 3 ml IVFLUSH QSHIFT [facility] Last Admin: 10/04/23 09:45 Dose: 3 ml Home Medications ?Medication ?Instructions ?Recorded ?Confirmed ?Last Taken ?Type lamotrigine 200 mg tablet 200 mg PO BID 01/04/20 10/03/23 10/02/23 History acetaminophen 500 mg tablet 1,000 mg PO DAILY PRN Pain 10/03/23 10/03/23 Unknown History (Tylenol Extra Strength) ibuprofen 200 mg tablet 400 mg PO DAILY PRN Pain 10/03/23 10/03/23 Unknown History levothyroxine 150 mcg tablet 150 mcg PO DAILY@0630 10/03/23 10/03/23 10/03/23 History Exam Height,Weight and Vital Signs: Height 5 ft 9 in Weight 74.843 kg Last Vital Signs Temp 98.0 F 10/04/23 13:37 Pulse 54 10/04/23 13:37 Resp 16 10/04/23 13:37 BP 117/74 10/04/23 13:37 Pulse Ox 100 10/04/23 13:37 O2 Del Method Room Air 10/04/23 13:37 Pertinent Lab Results Pertinent Lab Results: Laboratory Tests 10/03/23 13:13 WBC 10.2 RBC 4.30 L Hgb 13.7 L Hct 39.8 L MCV 92.6 MCH 31.9 MCHC 34.4 RDW 12.6 Plt Count 225 MPV 8.7 L Immature Gran % (Auto) 0.3 Neut % (Auto) 80.6 H Lymph % (Auto) 11.0 L [place] % (Auto) 7.4 Eos % (Auto) 0.5 Baso % (Auto) 0.2 Lymph # (Auto) 1.1 L [place] # (Auto) 0.8 Eos # (Auto) 0.1 Baso # (Auto) 0.0 Abs Immat Gran (auto) 0.03 Absolute Neuts (auto) 8.2 Absolute Nucleated RBC 0.000 Nucleated RBC % (auto) 0.0 Sodium 139 Potassium 3.8 Chloride 104 Carbon Dioxide 27 Anion Gap 12 BUN 11 Creatinine 0.91 Estim Creat Clear Calc 105.7 Estimated GFR > 60 Random Glucose 117 H Calcium 9.5 Magnesium 1.7 Total Bilirubin 0.7 AST 23 ALT 20 Alkaline Phosphatase 60 Total Protein 7.3 Albumin 4.5 Urine Color Yellow Urine Appearance Clear Urine pH 7.5 Ur Specific [place] <= 1.005 Urine Protein Negative Urine Glucose (UA) Negative Urine Ketones Negative Urine Blood Small (1+) H Urine Nitrite Negative Ur Leukocyte Esterase Negative Urine RBC 6-10 H Urine WBC 0-5 Ur Squamous Epith Cells 0-2 Urine Bacteria None Seen Hyaline Casts 0-2 Influenza Type A (PCR) NEGATIVE Influenza Type B (PCR) NEGATIVE RSV RNA Qual (PCR) NEGATIVE SARS-CoV-2 RNA (RT-PCR) NEGATIVE Airway Mallampati Class: II TM Dist: >3cm Neck ROM: Full Heart: rrr Lungs: cta Assessment and Plan Assessment Anesthesia Assessment: Anesthesia Plan Discussed Final Anesthetic Review Family History of Problems with Anesthesia: No History of Problems with Anesthesia: Yes NPO: Yes ASA Class: II Final Preanesthetic Review: No Changes in Pt Med Stat, Meds/Allgs Chart Reviewed, Consent Obtained/Reviewed and Anes Risks/Benef Reviewed Patient Risk: Low Procedure Risk: Low Anesthetic Plan Anesthetic Plan: GA Disposition: Standard PACU
--- NOTE | 2023-10-04 15:44 | W.PM.OPN ---
Operative Note Operative Note Date of Service: 10/04/23 Narrative: Preoperative diagnosis: 1. ACUTE APPENDICITIS 2. INCARCERATED UMBILICAL HERNIA APPROXIMATELY 2 CM IN SIZE Postop diagnosis: The same, dense right colonic adhesions to the right lower quadrant and right abdominal wall Procedure laparoscopic appendectomy, primary repair of incarcerated umbilical hernia, laparoscopic adhesionolysis Surgeon: Octaviano Ballpoint Pen Cartridge Tester: Stew Type of Anesthesia: General Indication for surgery: 2 cm incarcerated umbilical hernia which was used as the umbilical port. Patient has had prior surgery for a ACCIDENT EXAMINER shunt and developed marked adhesions of the ascending colon and cecum to the anterior abdominal wall and iliac fossa necessitating extensive adhesionolysis to allow mobilization of the cecum forward/medially to address the retrocecal appendix. Appendix was edematous and inflamed but without gross evidence of perforation. Findings: Patient brought to the operating room, placed on operative table supine position, after an adequate level of general anesthesia was induced, Delvalle catheter was placed under sterile technique and the patient's abdomen was prepped and draped in usual sterile fashion. Using a supra umbilical curvilinear incision, Caballero technique was used through the incarcerated umbilical hernia, with omental contents were amputated and sac also excised and 15 mm of CO2 insufflation was performed. Lower midline and suprapubic ports were placed under direct laparoscopic view and the patient placed in Trendelenburg position and tilted to the left. Findings were as noted above very dense adhesions of the cecum and ascending colon to the abdominal wall and iliac fossa were taken down under direct vision to allow mobilization and access to the retrocecal appendix. This was identified and grasped. It's mesentery was sequentially taken down using double firing of ligature device. Appendix was then transected at the cecal base using endoscopic LOUIE stapler. Specimen was placed in an Endo-Catch bag, and retrieved through the umbilical port. Abdominal cavity was very copiously irrigated and secured for hemostasis. Ascending colon and cecum were carefully examined for any transmural or serosal defects , of which none were grossly obvious. All ports removed under direct laparoscopic view. Wounds were closed in the following manner; umbilical wound which was the site of the hernia was closed primarily using interrupted 0 Vicryl sutures. Skin wounds were closed in subcuticular 4-0 Vicryl sutures followed by Steri-Strips and sterile dressings. Wounds were infiltrated 0.5% Marcaine at completion. Sponge, needle, and instrument counts reported correct. Patient tolerated the procedure well emerged from anesthesia stable condition. EBL minimal
[2023-10-04] MEDS: oxyCODONE HCl Immed Release 5 MG TABLET PO (23:43)
[2023-10-04] MEDS: Ketorolac Tromethamine 15 MG/ML VIAL IVPUSH (23:43)
[2023-10-05] MEDS: Lactated Ringers 1,000 ML 125 ML IVCONT (02:31)
[2023-10-05 04:56] VITALS: BP 106/56; PULSE 66; RESP 16; TEMP 36.1; O2SAT 99
[2023-10-05] MEDS: Levothyroxine Sodium 150 MCG TABLET PO (06:33)
[2023-10-05 07:18] VITALS: BP 94/50; PULSE 55; RESP 16; TEMP 36.8; O2SAT 98
[2023-10-05] MEDS: oxyCODONE HCl Immed Release 5 MG TABLET PO ×2 (07:26→11:04)
[2023-10-05] MEDS: lamoTRIgine 100 MG TABLET 200 MG PO (07:26)
--- NOTE | 2023-10-05 07:56 | PM.PNGS ---
Subjective Subjective Date of Service: 10/05/23 Interval history: Feels well, tolerating solid diet. OOB and ambulating. Pain well controlled. Passing flatus. Physical Exam Vital Signs: Vital Signs: Last Vital Signs Temp 98.2 F 10/05/23 07:18 Pulse 55 10/05/23 07:18 Resp 16 10/05/23 07:18 BP 94/50 L 10/05/23 07:18 Pulse Ox 98 10/05/23 07:18 O2 Del Method Room Air 10/05/23 07:18 BMI result Body Mass Index 24.4 Const: General: comfortable, no acute distress and alert Resp: Effort & Inspection: normal respiratory effort GI: Inspection: No distended and Yes incision (clean dressings) Palpation (GI): Soft to palpation, Tenderness to palpation present (GI) (mild incisional) and no guarding Skin: General skin exam: no rashes or lesions noted Objective Data Active Medications Acetaminophen (Acetaminophen 325 Mg Tablet) 650 mg PO Q6H PRN PRN Reason: Pain, Mild (Pain Scale 1-3), fever or headache Al Hydroxide/Mg Hydroxide (Magnesium Hydrox/Alum Hydrox 30 Ml Oral.Susp) 30 ml PO Q4H PRN PRN Reason: Heartburn Calcium Carbonate (Calcium Carbonate 750 Mg Tab.Chew) 750 mg PO Q4H PRN PRN Reason: Heartburn Hydromorphone HCl (Hydromorphone Hcl 1 Mg/Ml Syringe) 0.5 mg IVPUSH Q4H PRN; Protocol PRN Reason: Pain, Severe (Pain Scale 7-10) Last Admin: 10/04/23 07:48 Dose: 0.5 mg Documented By: LAVERN Lactated Ringer's (Lr) 1,000 mls @ 125 mls/hr IVCONT .Q8H [facility] Last Admin: 10/05/23 06:33 Dose: Not Given Documented By: ENEDINA Non-Admin Reason: IV Running Ketorolac Tromethamine (Ketorolac Tromethamine 15 Mg/Ml Vial) 15 mg IVPUSH Q6H PRN PRN Reason: abdominal pain Last Admin: 10/04/23 23:43 Dose: 15 mg Documented By: ENEDINA Lamotrigine (Lamotrigine 100 Mg Tablet) 200 mg PO BID [facility] Last Admin: 08/14/24 07:26 Dose: 200 mg Documented By: OSCAR Levothyroxine Sodium (Levothyroxine Sodium 150 Mcg Tablet) 150 mcg PO DAILY@0630 [facility] Last Admin: 10/05/23 06:33 Dose: 150 mcg Documented By: ANTOIC Magnesium Hydroxide (Milk Of Magnesia 30 Ml Oral.Susp) 30 ml PO DAILY PRN PRN Reason: Constipation Melatonin (Melatonin 3 Mg Tablet) 6 mg PO BEDTIME PRN PRN Reason: Insomnia Ondansetron HCl (Ondansetron Hcl 4 Mg/2 Ml Vial) 4 mg IVPUSH Q8H PRN PRN Reason: Nausea and Vomiting Oxycodone HCl (Oxycodone Hcl Immed Release 5 Mg Tablet) 5 mg PO Q4H PRN PRN Reason: Pain, Moderate(Pain Scale 4-6) Last Admin: 10/05/23 07:26 Dose: 5 mg Documented By: OSCAR Sodium Chloride (0.9 % Sodium Chloride Flush 3 Ml Syringe) 3 ml IVFLUSH QSHIFT [facility] Last Admin: 10/05/23 07:26 Dose: Not Given Documented By: OSCAR Non-Admin Reason: IV Running Labs 10/03/23 13:13 10/03/23 13:13 Procedures Date of Service Date of Service: 10/05/23 Progress Note: A&P Assessment and plan (1) S/P laparoscopic appendectomy: Status: Acute Plan POD #1 s/p laparoscopic appendectomy, primary repair of incarcerated umbilical hernia, laparoscopic adhesionolysis. Doing well post op. VSS. Abd exam benign with appropriate post op tenderness, clean dressings. Stable for dc to home, f/u in office in 1 week.Patient comfortable with plan. Time Spent With Patient Time: Total time managing care of this patient today ____ minutes. Quality Stroke Does the patient have a stroke diagnosis?: No VTE Prior VTE?: No VTE Risk Level:: Surgical - low VTE Device Contraindication: Treatment Not Indicated VTE Drug Contraindication: Treatment Not Indicated
--- NOTE | 2023-10-05 08:19 | MHC.CM.PN ---
Pt has been medically cleared for DC, he will go home via family transport, plan is: self care.
--- NOTE | 2023-10-05 09:59 | HO.POSTANES ---
Post Anesthesia Evaluation Post Anesthesia Evaluation Date of Service: 10/04/23 Vital Signs: Vital Signs Temp Pulse Resp BP Pulse Ox O2 Del Method 10/05/23 07:18 98.2 F 55 16 94/50 L 98 Room Air 10/05/23 04:56 96.9 F 66 16 106/56 L 99 Room Air 10/04/23 23:57 97.7 F 72 16 114/84 98 Room Air Anesthesia: General Mental Status: Awake Pain Control: Satisfactory Nausea/Vomiting: None Hydration: Adequate Anesthesia-Related Issues: No Anes. Related Issues
[2023-10-05 11:31] VITALS: BP 136/77; PULSE 59; RESP 18; TEMP 36.7; O2SAT 98
--- NOTE | 2023-10-05 13:16 | P.DS_ITS ---
DS: Providers Provider Date of Service: 10/05/23 Date of admission: 10/03/23 20:11 Date of discharge: 10/05/23 Primary care physician: Nasir Perkins PA-C Attending physician on admission: Nadir Brumfield Attending physician on discharge: Nadir Brumfield DS: Diagnosis Discharge Diagnosis (1) S/P laparoscopic appendectomy: Status: Acute DS: Summary Hospital Course Hospital Course: HPI AT ADMISSION: Khalif Kraus is a 42 year old male with PMH significant for [employer] shunt, epilepsy who presented to the ED with c/o acute onset of abdominal pain. The pain is in the RLQ. It began Tuesday night around 2am and awoke him out of sleep. The pain has been constant and worsening in severity. He was seen in urgent care and they sent him to the emergency room for further evaluation. Patient denies any fevers, chills, nausea, vomiting or diarrhea, sick contacts. He denies similar episodes of previous pain. He has a history of RIH repair. In the ED work up included CBC, BMP and LFTs which were WNL. CT scan abd/pelvis showed thickened appendix with appendicolith and surrounding periappendiceal inflammatory changes. He reports continued RLQ abd pain this morning. HOSPITAL COURSE: The patient was admitted to the surgical service for further treatment of the acute appendicitis. He elected to proceed with laparoscopic appendectomy. He was added onto the OR schedule for that day. On 10/04/23, a laparoscopic appendectomy, primary repair of incarcerated umbilical hernia, laparoscopic adhesionolysis was performed by Dr. Brumfield without complication. The patient tolerated the procedure well. He had an uncomplicated recovery course. On POD #1, he felt well and was tolerating a solid diet without nausea or vomiting, had good pain control and was ambulating without difficulty. He was hemodynamically stable. His abdomen was benign with appropriate post op tenderness and clean and intact dressings. He felt ready for discharge. He was discharged to home on 10/05/23 in stable condition. He is to follow up in the office in 1 week. Status at Discharge Functional status at discharge: independent ambulation Overall status at discharge: patient is progressing back to baseline Time Attestation Discharge Coordination Time (in mins): 30 Quality: Safe Use of Opioids Does Pt have an Active Cancer Diagnosis on the Problem List?: No Quality: Stroke Does the patient have a stroke diagnosis?: No Physical Exam Vital Signs: Vital Signs: Last Vital Signs Temp 98.0 F 10/05/23 11:31 Pulse 59 10/05/23 11:31 Resp 18 10/05/23 11:31 BP 136/77 10/05/23 11:31 Pulse Ox 98 10/05/23 11:31 O2 Del Method Room Air 10/05/23 11:31 BMI result Body Mass Index 24.4 Const: General: comfortable, no acute distress and alert Orientation/consciousness: patient oriented x3 Resp: Effort & Inspection: normal respiratory effort GI: Inspection: No distended and Yes incision (dressings c/d/i) Palpation (GI): Soft to palpation, Tenderness to palpation present (GI) (mild incisional) and no guarding Skin: General skin exam: no rashes or lesions noted Neuro: General: patient oriented x3 DS: Data Data Completed and Pending Pending studies at discharge: Pending at discharge 10/04/23 15:29 Surgical [PTH] Routine Discharge Plan Discharge Anticipated Discharge Date/Time: 10/05/23 15:47 Patient Disposition: Home, Self-Care Discharge Diagnosis: acute appendicitis Referrals: Nasir Perkins PA-C [Primary Care Provider] - 1 Week Nadir Brumfield MD [Physician] - 1 Week Discharge Medications: New docusate sodium [Colace] 100 mg capsule 100 mg PO BID Qty: 30 0RF oxycodone 5 mg tablet 5 mg PO Q4H PRN (Reason: pain (scale score 7-10)) Qty: 24 0RF Rx Instructions: Partial Fill upon patient request. Continued acetaminophen [Tylenol Extra Strength] 500 mg Tablet 1,000 mg PO DAILY PRN (Reason: Pain) ibuprofen 200 mg Tablet 400 mg PO DAILY PRN (Reason: Pain) levothyroxine 150 mcg tablet 150 mcg PO DAILY@0630 lamotrigine 200 mg tablet 200 mg PO BID Discharge Orders: Discharge Order (Routine); Ordered 10/05/23 Ordered By: Rajwinder Mathias Diet: Advance to usual diet Activity on Discharge: No heavy lifting Stand Alone Forms: Patient Portal Discharge page Print Language: Sami Activity Restrictions/Additional Instructions: Apply an ice pack for short intervals (20 minutes on, followed by at least 20 minutes off) for the first 2 days. Do not apply heat. Do not use creams, lotions, or topical antibiotics. These can cause infection or allergic reaction. Ok to shower 48 hours after your surgery. Remove dressings in 2 days and replace as needed. You have steri strips (small white cloth strips) covering your incision- these will fall off ~1 week. Follow up in office with Dr. Brumfield in 1 week. ([phone]) No heavy lifting (>10lbs) or strenuous activity! Call Your Doctor If: -Your temperature exceeds 101.5? F -You experience excessive pain or swelling -You have an unexpected reaction to medication -You have excessive bleeding -You experience continued vomiting/nausea -Your incision begins to separate -Your incision shows signs of infection such as increased redness, sw elling, excessive pain, drainage (light blood or clear fluid is normal) or heat Care Plan Goals: Return to baseline health and resume normal activities following recovery earnestine od. Health Concerns: acute appendicitis epilepsy [employer] shunt Plan of Treatment: s/p laparoscopic appendectomy f/u in office in 1 week Assessment: Doing well post op
== END 2023-10-05 13:23 | disposition home or self-care (01) ==
LOC: HO.ED 20:17 → HO.EDOVER 20:21 → HO.S3 10-04 07:27
PROVIDERS: Physician Assistant Medical; Admitting Provider Surgery; Emergency Provider Emergency Medicine; PCP Physician Assistant; Visit Provider Surgery
PROC: 0DTJ4ZZ Resection of Appendix, Percutaneous Endoscopic Approach (ICD-10-PCS; CPT 44970; principal; 2023-10-04 14:30)
DX: K35.80 Unspecified acute appendicitis (principal); K42.0 Umbilical hernia with obstruction, without gangrene; R10.31 Right lower quadrant pain; G40.909 Epilepsy, unspecified, not intractable, without status epilepticus; Z79.899 Other long term (current) drug therapy; Z03.818 Encounter for observation for suspected exposure to other biological agents ruled out
CPT/HCPCS: 44970; 49592; 0241U; 74177; 80053; 81001; 83735; 85025; 88304; 96361; 96365; 96366; 96375; 96376; 99221; 99285; J1170; J1596; J1885; J2270; J2405; J2543; J2704; J2795; J3010; J7120; Q9967

== ENCOUNTER → 2023-10-03 20:11 | Outpatient (BNV) | payer OTHER, SELFPAY | PROVIDERS: Admitting Provider Surgery; Emergency Provider Emergency Medicine; PCP Physician Assistant; Visit Provider Physician Assistant Surgical | DX: Z90.49 Acquired absence of other specified parts of digestive tract (principal) | CPT/HCPCS: 44970; 99024; 99222 ==

== ENCOUNTER 2023-10-10 09:47 | Outpatient (REF) | payer OTHER, SELFPAY ==
[2023-10-10 11:41] LABS: TSH reflex Free T4 0.66 uIU/mL (0.32-4.0)
== END 2023-10-10 09:48 | disposition home or self-care (01) ==
LOC: HO.LAB 09:47
PROVIDERS: PCP Physician Assistant; Visit Provider Physician Assistant
DX: E03.9 Hypothyroidism, unspecified (principal)
CPT/HCPCS: 36415; 84443

== ENCOUNTER 2023-10-11 11:41 | Outpatient (AMB) | payer OTHER, SELFPAY ==
--- NOTE | 2023-10-11 11:46 | A.OFFVIS_ITS ---
Intake Visit Reasons: laparoscopic appendectomy Intake Note: Patient here s/p 1. lap appy 2. umbilical hernia repair on 10-04-2023. Patient c/o:bruising, soreness on abdomen. Steri stips still in place. o longer taking rx pain meds. Client Experience Administrator Required: No Accompanied by: Self / Same As Patient Allergies No Known Allergies Allergy (Verified 10/11/23 11:47) HPI Comments Details: PATIENT WAS STATUS POST LAPAROSCOPIC APPENDECTOMY. HE IS DOING QUITE WELL. He is tolerating a diet. Having regular bowel habits. He is increasing his activity level. 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 Father Heart attack, Onset Age: 57 Diabetes Social History Housing: Apartment Alcohol intake: current Alcohol intake frequency: a few times a month Alcohol type: beer Patient Tobacco Use Status: Former Tobacco user Tobacco use type: Cigarette e-Cigarette/Vaping Use: Never Used Second Hand Smoke Exposure: No service: No Current occupational status: employed Current occupation: rt hand /patient care Cognitive needs: No Hearing needs: No Vision needs: Yes (Glasses) Physical Exam GI Other: Abdomen is scaphoid, soft, benign. All wounds clean dry and intact healing very well Assessment & Plan Assessment & Plan (1) S/P laparoscopic appendectomy: Code(s): Z90.49 - Acquired absence of other specified parts of digestive tract Category: Medical Plan Patient has been given local instructions including avoiding strenuous activities for next few weeks time we will otherwise follow-up p.r.n.. He says at his place of employment he does no such strenuous activities and would like to returned today. Note will be given for this. Patient will otherwise follow- up p.r.n.. All questions answered Coding Level of Care Code Global (77651) Diagnoses S/P laparoscopic appendectomy Z90.49
== END 2023-10-11 11:59 | disposition home or self-care (01) ==
PROVIDERS: PCP Physician Assistant; Visit Provider Surgery
DX: Z90.49 Acquired absence of other specified parts of digestive tract (principal)
CPT/HCPCS: 99024

== ENCOUNTER → 2023-10-11 11:41 | Outpatient (BNVA) | payer OTHER, SELFPAY | PROVIDERS: PCP Physician Assistant; Visit Provider Surgery ==

== ENCOUNTER 2023-10-12 11:21 | Outpatient (AMB) | payer OTHER, SELFPAY ==
[2023-10-12 11:22] VITALS: BP 104/68; PULSE 73; O2SAT 99; BMI 23.2
--- NOTE | 2023-10-12 11:22 | A.OFFPC_ITS ---
Vital Signs 10/12/23 11:22 Height 5 ft 9 in Weight 157 lb 0.6 oz BMI 23.2 BP 104/68 Blood Pressure Location Lt brachial Position Sitting Pulse 73 Pulse Source Pulse Oximeter Pulse Oximetry (%) 99 Oxygen Delivery Method Room Air Intake Visit Reasons: TCM ABDOMINAL PAIN 10/04 DISCHARGED Intake Note: Patient is here for hospital discharge follow up. Patient was discharged from [facility] on 10/04 Sheeter Helper Required: No Allergies No Known Allergies Allergy (Verified 10/12/23 11:22) Tobacco use date assessed: 03/10/23 Dental Screening Dental Screen Date: 03/10/23 HPI TCM ABDOMINAL PAIN 10/04 DISCHARGED HPI Details 43-year-old male with past medical histo ry of hypothyroid, traumatic brain injury, epilepsy last seen by PA coming in for hospital follow up.?In review of the notes, patient was seen in [facility] ED 10/03/2023 for acute onset abdominal pain.?CBC, BMP and LFTs were within normal limits however CT abdomen/pelvis showed evidence of appendicitis. Patient was admitted for laparoscopic appendectomy, repair of incarcerated umbilical hernia, and laparoscopic adhesion lysis performed on 10/04/2023.?Patient felt well the following day and was discharged home 10/05/2023 to follow up in the office in 1 week.?Patient was seen by General surgery postop 10/11/2023 has been doing well and advanced to solid diet advised to avoid strenuous activities and follow up as needed. Patient states he has been feeling generally well denies any abdominal pain since the procedure. He has not had to use any pain medication since his procedure. He has no other acute concerns today and is aware of his restrictions for the next 2 weeks. 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 Father Heart attack, Onset Age: 57 Diabetes Social History Housing: Apartment Alcohol intake: current Alcohol intake frequency: a few times a month Alcohol type: beer Patient Tobacco Use Status: Former Tobacco user Tobacco use type: Cigarette e-Cigarette/Vaping Use: Never Used Second Hand Smoke Exposure: No service: No Current occupational status: employed Current occupation: rt hand /patient care Cognitive needs: No Hearing needs: No Vision needs: Yes (Glasses) Questionnaire Thrive Questionnaire Date Thrive assessed: 10/04/23 AUDIT C Alcohol Use Questionnaire (AUDIT-C) 1. How often do you have a drink containing alcohol?: 2-3 times a week 2. How many drinks containing alcohol do you have on a typical day when you are drinking?: 5 or 6 3. How often do you have six or more drinks on one occasion?: Weekly Total Score: 8 BJORN-7 AMB Questionnaire BJORN-7 Date BJORN - 7 assessed: 03/10/23 Source: Developed by Drs. Robbin Hancock, Lilibeth Bobby, Epifanio See and colleagues, with an educational phu from [employer]. Review of Systems Const Denies body aches, Denies chills, Denies fever(s) and Denies poor appetite Eyes Reports no additional complaints ENT Reports no additional complaints Card Denies chest pain and Denies dyspnea Resp Denies dyspnea GI Denies abdominal pain, Denies constipation, Denies diarrhea, Denies nausea and Denies vomiting Reports no additional complaints Musc Reports no additional complaints Skin/Breast Reports system reviewed and no additional complaints, except as documented Psych Reports no additional complaints Physical exam (Primary Care) Vital Signs: Last Vital Signs Pulse 73 10/12/23 11:22 BP 104/68 10/12/23 11:22 Pulse Ox 99 10/12/23 11:22 Oxygen Delivery Method Room Air 10/12/23 11:22 BMI result Body Mass Index 23.2 Tobacco/Smoking Status: Tobacco use Status Tobacco use date assessed 03/10/23 10/12/23 11:24 Patient Tobacco Use Status Former Tobacco user 10/12/23 11:24 Tobacco use type Cigarette 10/12/23 11:24 e-Cigarette/Vaping Use Never Used 10/12/23 11:24 Thrive Assessment: Date of Thrive Assessment Date Thrive assessed 10/04/23 10/12/23 11:24 Const General: cooperative, healthy appearing, comfortable and no acute distress Orientation/consciousness: patient oriented x3 HENMT Head: Yes normocephalic Ears: hearing grossly normal bilaterally General nose exam: Normal external nose present Eyes General: appearance normal, both eyes and all related structures Conjunctivae: conjunctivae normal Neck Neck: Yes full ROM and Yes no lymphadenopathy Resp Effort & Inspection: normal respiratory effort Auscultation: clear to auscultation bilaterally, no crackles, no rales, no rhonchi and no wheezes Cardio Rate: regular rate Rhythm: regular rhythm GI Other: Surgical incisions are clean dry and intact with mild bruising Inspection: Yes normal to inspection Skin General skin exam: no rashes or lesions noted Neuro General: patient oriented x3 Gait exam (Neuro): Normal gait present Extrem General: Yes normal to inspection, Yes full ROM and No edema Psych Affect: normal affect Attitude: cooperative Insight: Good insight present (Psych) Judgement: Good judgement present (Psych) Assessment and Plan Assessment & Plan (1) S/P laparoscopic appendectomy: Code(s): Z90.49 - Acquired absence of other specified parts of digestive tract Plan: Patient is feeling generally well postoperatively and denies any abdominal pain or pain around the incision sites. Incision sites look clean dry and intact no evidence of infection. Patient is aware of his restrictions over the next couple of weeks. Reviewed with patient when to return to ER for evaluation. All questions were answered and patient to follow up at next appointment. Plan This note was constructed using voice recognition software. While every effort has been made to ensure accuracy and computerized mill mill recorder, still areas may have been included sometimes these areas may affect the content or meeting of the given symptoms. Total time spent caring for the patient today was 20 minutes. This includes time spent before the visit reviewing the chart, time spent during the visit, and time spent after the visit and documentation. Coding Level of Care Code TCM Mod MDM <= 7 Days Diagnoses S/P laparoscopic appendectomy Z90.49
== END 2023-10-12 11:43 | disposition home or self-care (01) ==
PROVIDERS: PCP Physician Assistant
DX: Z90.49 Acquired absence of other specified parts of digestive tract (principal)
CPT/HCPCS: 99213

== ENCOUNTER 2023-10-27 09:51 | Outpatient (AMB) | payer OTHER, SELFPAY ==
--- NOTE | 2023-10-27 09:54 | MHC.PC.OV ---
Vital Signs 10/27/23 10:04 Height 5 ft 9 in Weight 159 lb BMI 23.5 BP 120/82 Blood Pressure Location Lt brachial Position Sitting Pulse 72 Pulse Source Pulse Oximeter Pulse Oximetry (%) 98 Oxygen Delivery Method Room Air Intake Visit Reasons: annual exam Intake Note: Patient is here today for a physical. 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 Accompanied by: Self / Same As Patient Allergies No Known Allergies Allergy (Verified 10/27/23 10:06) Medication List - Last Reconciled 10/27/23 by Nasir Perkins PA-C acetaminophen (Tylenol Extra Strength) 1,000 mg PO DAILY PRN docusate sodium (Colace) 100 mg PO BID ibuprofen 400 mg PO DAILY PRN lamotrigine 200 mg PO BID levothyroxine 150 mcg PO DAILY@0630 Tobacco use date assessed: 10/27/23 Dental Screening Dental Screen Date: 03/10/23 HPI annual exam HPI Details Patient is a 43-year-old male here today for routine annual physical Patient has a past medical history significant for traumatic brain injury, seizure disorder, hypothyroidism. Recently underwent a appendectomy. He has recovered well and is due to return back to work this Tuesday. .. Hypothyroidism: Continues on 150 mcg of levothyroxine. Will recheck TSH to assure normal. .. Epilepsy/traumatic brain injury: Continues to follow Neurology. Continues on lamotrigine and has not had any recent seizure activity. 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 Father Heart attack, Onset Age: 57 Diabetes Social History Housing: Apartment Alcohol intake: current Alcohol intake frequency: a few times a month Alcohol type: beer Patient Tobacco Use Status: Former Tobacco user Tobacco use type: Cigarette e-Cigarette/Vaping Use: Never Used Second Hand Smoke Exposure: No Substance Use Type: Marijuana service: No Current occupational status: employed Current occupation: rt hand /patient care Cognitive needs: No Hearing needs: No Vision needs: Yes (Glasses) Questionnaire PHQ-9 Over the last 2 weeks, how often have you been bothered by any of the following problems? 1. Little interest or pleasure in doing things: not at all 2. Feeling down, depressed, or hopeless: not at all 3. Trouble falling or staying asleep, or sleeping too much: not at all 4. Feeling tired or having little energy: not at all 5. Poor appetite or overeating: not at all 6. Feeling bad about yourself - or that you are a failure or have let yourself or your family down: not at all 7. Trouble concentrating on things, such as reading the newspaper or watching television: not at all 8. Moving or speaking so slowly that other people could have noticed. Or the opposite - being so fidgety or restless that you have been moving around a lot more than usual: not at all 9. Thoughts that you would be better off or of hurting yourself in some way: not at all Total score: 0 Depression Screening Interpretation: Negative Depression Screening Done: Yes 20715 - PHQ-9 Billing: Yes Source: Developed by Drs. Robbin Hancock, Lilibeth Bobby, Epifanio See and colleagues, with an educational phu from [employer]. Thrive Questionnaire Date Thrive assessed: 10/27/23 I am a: Patient What is your living situation today?: I have a steady place to live Within the past 12 months, did the food you bought not last and you didn't have the money to get more?: I choose not to answer this question Within the past 12 months, did you worry whether your food would run out before you got money to buy more?: I choose not to answer this question Do you have trouble paying for medicines?: I choose not to answer this question Do you have trouble getting transportation to medical appointments?: No Do you have trouble paying your heating and electricity bill?: I choose not to answer this question Do you have trouble taking care of your child, family member or friend?: I choose not to answer this question Do you have trouble with day-to-day activities such as bathing, preparing meals, shopping, managing finances, etc.?: I choose not to answer this question Are you currently unemployed and looking for a job?: No Are you interested in more education?: No Please select the resources that you would like help with: None Currently or been in a relationship where the following occur: I choose not to answer THRIVE Score: 0 AUDIT C Alcohol Use Questionnaire (AUDIT-C) 1. How often do you have a drink containing alcohol?: Monthly or less 2. How many drinks containing alcohol do you have on a typical day when you are drinking?: 1 or 2 3. How often do you have six or more drinks on one occasion?: Less than monthly Total Score: 2 BJORN-7 AMB Questionnaire BJORN-7 Date BJORN - 7 assessed: 10/27/23 Feeling nervous, anxious, or on edge: 0 = Not at all Not being able to stop or control worryin = Not at all Worrying too much about different things: 0 = Not at all Trouble relaxin = Not at all Being so restless that it is hard to sit still: 0 = Not at all Becoming easily annoyed or irritable: 0 = Not at all Feeling afraid as if something awful might happen: 0 = Not at all Total BJORN-7 score (0-4 normal; 5-9 mild; 10-14 moderate; 15-21 severe): 0 Source: Developed by Drs. Robbin Hancock, Lilibeth Bobby, Epifanio See and colleagues, with an educational phu from [employer]. BJORN-7 Assessment Billing BJORN-7 Assessment Tool: BJORN-7 Assessment 53633 Review of Systems Const Denies body aches, Denies chills, Denies excessive sweating, Denies fatigue, Denies fever(s) and Denies headache(s) Eyes Denies blurry vision ENT Denies dysphagia, Denies vertigo, Denies dizziness, Denies headache(s), Denies hearing loss and Denies tinnitus Card Denies chest pain, Denies chest pain with activity, Denies syncope, Denies irregular heart rhythm and Denies dyspnea Resp Denies chest congestion, Denies cough, Denies hemoptysis, Denies dyspnea and Denies wheezing GI Denies abdominal pain, Denies melena, Denies hematochezia, Denies coffee ground emesis, Denies dysphagia, Denies diarrhea, Denies nausea and Denies vomiting Denies difficulty urinating, Denies dysuria, Denies urinary frequency, Denies urinary hesitancy and Denies urinary urgency Musc Denies arthralgias, Denies limited range of motion, Denies muscle cramps and Denies muscle weakness Skin/Breast Denies rash and Denies skin ulcer Neuro Denies Abnormal speech present, Denies confusion, Denies vertigo, Denies dizziness, Denies syncope, Denies headache(s), Denies memory loss and Denies seizure-like activity Psych Denies anxiety, Denies confusion, Denies depression, Denies memory loss, Denies panic attacks and Denies paranoia Endo Denies excessive sweating, Denies fatigue, Denies flushing, Denies polydipsia and Denies polyuria Aller/Immun Denies wheezing Physical exam (Primary Care) Vital Signs: Last Vital Signs Pulse 72 10/27/23 10:04 BP 120/82 10/27/23 10:04 Pulse Ox 98 10/27/23 10:04 Oxygen Delivery Method Room Air 10/27/23 10:04 BMI result Body Mass Index 23.5 Tobacco/Smoking Status: Tobacco use Status Tobacco use date assessed 10/27/23 10/27/23 09:55 Patient Tobacco Use Status Former Tobacco user 10/27/23 09:55 Tobacco use type Cigarette 10/27/23 09:55 e-Cigarette/Vaping Use Never Used 10/27/23 09:55 PHQ-9: PHQ-9 Score PHQ-9: Total score 0 10/27/23 09:55 Depression Screening Interpretation: Negative Thrive Assessment: Date of Thrive Assessment Date Thrive assessed 10/27/23 10/27/23 09:55 Currently or been in a relationship where the following occur: I choose not to answer Const General: cooperative, comfortable, no acute distress, alert and awake; No confusion Orientation/consciousness: oriented to person, oriented to place, patient oriented x3 and No confusion HENMT Head: Yes normocephalic Ears: external ears normal and TM's normal bilaterally Face and sinus: No sinus tenderness Mouth: Normal oral and palatal mucosa present and tongue normal Teeth and gingiva: dentition normal and gingiva normal Throat: Yes posterior oropharynx normal, Yes tonsils normal and Yes uvula midline Eyes Conjunctivae: conjunctivae normal Sclerae: sclerae normal Pupils: Equal, round and reactive pupils present EOM: EOMs intact bilaterally Direct Ophthalmoscopy: No no photophobia Neck Neck: Yes no lymphadenopathy, No tender and Yes no JVD Thyroid: Thyroid normal Carotids: no bruits Chest Chest palpation & inspection: no tenderness Resp Effort & Inspection: normal respiratory effort, no audible wheezes, not labored and no stridor Auscultation: no crackles, no rales, no rhonchi and no wheezes Cardio Jugular venous distension: no JVD Rate: regular rate, not bradycardic and not tachycardic Rhythm: regular rhythm Bruits: no carotid bruits Peripheral pulses: Peripheral pulses 2+ throughout GI Inspection: Yes normal to inspection, No abdominal wall ecchymosis and No visible herniation Palpation (GI): Soft to palpation, nontender, no guarding, not rigid and No hepatosplenomegaly present Auscultation: normoactive bowel sounds General: Yes no CVA tenderness Back/Spine/Pelvis Back: no CVA tenderness and No back tenderness Cervical Spine: cervical ROM normal Thoracic/Lumbar Spine: thoracic and lumbar spine normal to inspection, straight leg raise negative bilaterally, No thoraco-lumbar ROM limited and No lumbar spinal tenderness Skin Lesions: no lesions Rashes: no rashes Wounds: no wounds Neuro General: oriented to person, oriented to place, patient oriented x3, CN's II-XI intact bilaterally and No confusion Cranial nerves: Yes Equal, round and reactive pupils present and Yes Normal accommodation reflex present Cognition (Neuro): normal cognition Speech: No Abnormal speech present Gait exam (Neuro): Normal gait present Motor exam (neuro): 5/5 motor strength present throughout Extrem Right upper extremity: full ROM; no cyanosis Left upper extremity: full ROM; no cyanosis Right lower extremity: no edema Left lower extremity: no edema Psych Appearance: grossly normal Mental Status: mental status grossly normal Affect: normal affect Attitude: cooperative Thought process: Normal thought process present Assessment and Plan Assessment & Plan (1) Annual physical exam: Code(s): Z00.00 - Encounter for general adult medical examination without abnormal findings (2) Hypothyroidism: Code(s): E03.9 - Hypothyroidism, unspecified Qualifiers: Hypothyroidism type: unspecified Qualified Code(s): E03.9 - Hypothyroidism, unspecified Plan: Continues on levothyroxine 150 mcg. Most recent TSH stable on lower dose of levothyroxine. Will recheck his TSH to assure normal. (3) TBI (traumatic brain injury): Code(s): S06.9XAA - Unspecified intracranial injury with loss of consciousness status unknown, initial encounter Qualifiers: Encounter type: subsequent encounter Loss of consciousness presence/duration: with LOC of unspecified duration Qualified Code(s): S06.9X9D - Unspecified intracranial injury with loss of consciousness of unspecified duration, subsequent encounter Plan: Had traumatic brain injury many years ago leading to intracranial swelling and epileptic disorder. Needed a intracranial shunt. Continues to follow Neurology (4) Arthritis of vgnuavdg-mwfmkqprj-fsqizqftx joint of right hand: Code(s): M19.031 - Primary osteoarthritis, right wrist Plan: He is status post surgery due to his scaphoid fracture. He reports his wrist pain and swelling is much better. He does have FMLA to take rest when needed. (5) Epilepsy: Code(s): G40.909 - Epilepsy, unspecified, not intractable, without status epilepticus Qualifiers: Epilepsy type: unspecified Intractability: not intractable Status epilepticus: without status epilepticus Qualified Code(s): G40.909 - Epilepsy, unspecified, not intractable, without status epilepticus Plan: Has had epilepsy since his traumatic brain injury many years ago.. Has not had any seizure activity in quite some time. Continues on lamotrigine and follows at neurologist. (6) Borderline high cholesterol: Code(s): E78.9 - Disorder of lipoprotein metabolism, unspecified Plan: Most recent fasting lipid panel showing borderline high total cholesterol at 202. Will continue with lifestyle and dietary modifications to control his cholesterol. Will recheck fasting lipid panel Orders: Orders Comprehensive [place]. Panel Fast Today Z13.1 - Encounter for screening for diabetes mellitus Lipid Panel Today E78.9 - Disorder of lipoprotein metabolism, unspecified TSH reflex Free T4 Today E03.9 - Hypothyroidism, unspecified Complete Blood Count no Diff Today G40.909 - Epilepsy, unspecified, not intractable, without status epilepticus Medications: New clobetasol 0.05% 1 appl topical DAILY 30 days PRN 45 grams 0RF itch L30.9 - Dermatitis, unspecified Coding Level of Care Code Est Pt Prev Care 40-64y(39942) Diagnoses Annual physical exam Z00.00 Hypothyroidism, unspecified type E03.9 Hypothyroidism type: unspecified Traumatic brain injury with loss of consciousness, subsequent encounter S06.9X9D Encounter type: subsequent encounter Loss of consciousness presence/duration: with LOC of unspecified duration Arthritis of fdyhdsge-cbagcmalh-uhlwtzkha joint of right hand M19.031 Nonintractable epilepsy without status epilepticus, unspecified epilepsy type G40.909 Epilepsy type: unspecified Intractability: not intractable Status epilepticus: without status epilepticus Borderline high cholesterol E78.9 Additional Codes BJORN-7 Assessment Billing - BJORN-7 Assessment Tool: BJORN-7 Assessment 39511 ([id number])
[2023-10-27 10:04] VITALS: BP 120/82; PULSE 72; O2SAT 98; BMI 23.5
== END 2023-10-27 10:21 | disposition home or self-care (01) ==
PROVIDERS: PCP Physician Assistant; Visit Provider Physician Assistant
DX: Z00.00 Encounter for general adult medical examination without abnormal findings (principal); E03.9 Hypothyroidism, unspecified; S06.9X9D Unspecified intracranial injury with loss of consciousness of unspecified duration, subsequent encounter; G40.909 Epilepsy, unspecified, not intractable, without status epilepticus; M19.031 Primary osteoarthritis, right wrist; E78.9 Disorder of lipoprotein metabolism, unspecified
CPT/HCPCS: 99396

== ENCOUNTER 2023-12-08 11:52 | Outpatient (AMB) | payer OTHER, SELFPAY ==
--- NOTE | 2023-12-08 12:01 | AM.OFFWIN_ITS ---
Intake Vital Signs 12/08/23 12:02 Height 5 ft 9 in Weight 160 lb BMI 23.6 BP 120/88 Blood Pressure Location Rt brachial Position Sitting Pulse 62 Pulse Source Pulse Oximeter Pulse Oximetry (%) 98 Oxygen Delivery Method Room Air Intake Visit Reasons: EP-chest pain and back pain, rash rt side chest Intake Note: Patient here for pain under right rib and rash under right parada and back pain which has been present since Tuesday. Patient Tobacco Use Status: Former Tobacco user Allergies No Known Allergies Allergy (Verified 12/08/23 12:04) Do you need a note to return to daycare/school/sports/work: No HPI EP-chest pain and back pain, rash rt side chest HPI Details This note is constructed using voice recognition software. While every effort has been made to ensure accuracy, social media assistant errors may have been included. The patient is a 43 year old male who presents to the clinic today with right- sided chest pain radiating around towards the back, starting 3 days ago. He has a the rash is slightly itchy, raised, and a little bit of red around it. He denies fever, chills. He does note that his feels like his nerves are slightly more activated. He denies any left-sided chest pain, nausea, vomiting, heartburn, arm pain, diaphoresis.. 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 Father Heart attack, Onset Age: 57 Diabetes Social History Housing: Apartment Alcohol intake: current Alcohol intake frequency: a few times a month Alcohol type: beer Patient Tobacco Use Status: Former Tobacco user Tobacco use type: Cigarette e-Cigarette/Vaping Use: Never Used Second Hand Smoke Exposure: No Substance Use Type: Marijuana service: No Current occupational status: employed Current occupation: rt hand /patient care Cognitive needs: No Hearing needs: No Vision needs: Yes (Glasses) Review of Systems Const All systems reviewed & are unremarkable except as noted in HPI and below Physical Exam Vital Signs: Last Vital Signs Pulse 62 12/08/23 12:02 BP 120/88 12/08/23 12:02 Pulse Ox 98 12/08/23 12:02 Oxygen Delivery Method Room Air 12/08/23 12:02 BMI result Body Mass Index 23.6 Const General: cooperative, healthy appearing, comfortable, no acute distress and well developed Orientation/consciousness: patient oriented x3 Limitations: no limitations Eyes General: appearance normal, both eyes and all related structures Resp Effort & Inspection: normal respiratory effort and able to speak in complete sentences Skin Other: x cluster of vesicular lesions with an erythematous base in single dermatome on right anterior chest wall. No signs of secondary bacterial infection. Neuro General: patient oriented x3 Results Reviewed Results Reviewed: In office EKG appears sinus bradycardia, otherwise normal. Assessment & Plan Assessment & Plan (1) Shingles: Code(s): B02.9 - Zoster without complications Qualifiers: Herpes zoster complications: without complications Qualified Code(s): B02.9 - Zoster without complications Plan: Antiviral therapy sent to requested pharmacy. Reviewed avoidance others in contact with open vesicles. Advised follow up with ongoing pain or symptoms or worsening symptoms. Plan See above for full details and plan. EKG obtained due to chest wall involving, reassuring history and physical examination that we are not dealing with any cardiac etiology. Orders: Orders AMB EKG-In Office Today R07.9 - Chest pain, unspecified Medications: New acyclovir 800 mg orally 5 times per day; while awake; 7 days 35 tabs 0RF Coding Level of Care Code Est Pt Level 4 (33875) Diagnoses Herpes zoster without complication B02.9 Herpes zoster complications: without complications
[2023-12-08 12:02] VITALS: BP 120/88; PULSE 62; O2SAT 98; BMI 23.6
== END 2023-12-08 12:21 | disposition home or self-care (01) ==
PROVIDERS: PCP Physician Assistant; Visit Provider Registered Nurse
DX: B02.9 Zoster without complications (principal)

== ENCOUNTER → 2023-12-08 11:52 | Outpatient (BNVA) | payer OTHER, SELFPAY | PROVIDERS: PCP Physician Assistant; Visit Provider Registered Nurse ==

== ENCOUNTER 2023-12-22 14:46 | Outpatient (AMB) | payer OTHER, SELFPAY ==
[2023-12-22 14:53] VITALS: BP 104/76; PULSE 66; TEMP 36.8; O2SAT 98; BMI 23.8
--- NOTE | 2023-12-22 14:53 | MHC.OFFWIV ---
Intake Vital Signs 12/22/23 14:53 Height 5 ft 9 in Weight 161 lb BMI 23.8 BP 104/76 Blood Pressure Location Rt brachial Position Sitting Pulse 66 Pulse Source Pulse Oximeter Temp 98.3 F Temp Source Oral Pulse Oximetry (%) 98 Oxygen Delivery Method Room Air Intake Visit Reasons: EP congestion, cough over a week Intake Note: Patient here for sinus congestion and cough that has been present for over a week. Patient Tobacco Use Status: Former Tobacco user Allergies No Known Allergies Allergy (Verified 12/22/23 14:54) Do you need a note to return to daycare/school/sports/work: No HPI HPI Comments History of Present Illness Details Patient is a 43-year-old male complaining of 12 days of a productive cough with dark green sputum, headaches, head congestion, sinus pain that is radiating into his jaw. He denies fevers, ear pain, shortness of breath or wheezing. He is able to tolerate PO. States he has tried to take Tylenol and ibuprofen and felt like he was getting a little bit better but now feels much worse. 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 Father Heart attack, Onset Age: 57 Diabetes Social History Housing: Apartment Alcohol intake: current Alcohol intake frequency: a few times a month Alcohol type: beer Patient Tobacco Use Status: Former Tobacco user Tobacco use type: Cigarette e-Cigarette/Vaping Use: Never Used Second Hand Smoke Exposure: No Substance Use Type: Marijuana service: No Current occupational status: employed Current occupation: rt hand /patient care Cognitive needs: No Hearing needs: No Vision needs: Yes (Glasses) Review of Systems Const All systems reviewed & are unremarkable except as noted in HPI and below Physical Exam Vital Signs: Last Vital Signs Temp 98.3 F 12/22/23 14:53 Pulse 66 12/22/23 14:53 BP 104/76 12/22/23 14:53 Pulse Ox 98 12/22/23 14:53 Oxygen Delivery Method Room Air 12/22/23 14:53 BMI result Body Mass Index 23.8 Const General: cooperative, healthy appearing, comfortable and no acute distress Orientation/consciousness: patient oriented x3 Limitations: no limitations HEENT Head: Yes normal to inspection Ears: hearing grossly normal bilaterally, external ears normal and TM's normal bilaterally General nose exam: Normal external nose present, Normal nares present and No nasal discharge present Face and sinus: Yes normal facial exam and Yes sinuses nontender Mouth: Normal oral and palatal mucosa present and moist mucous membranes Throat: Yes tonsils normal, Yes uvula midline and Yes posterior oropharynx abnormal (Erythema) Eyes General: appearance normal, both eyes and all related structures Neck Neck: Yes normal visual inspection Resp Effort & Inspection: normal respiratory effort, able to speak in complete sentences, no respiratory distress, not tachypneic, no tripod positioning and no use of accessory muscles Skin General skin exam: no rashes or lesions noted Neuro General: patient oriented x3 Extrem General: Yes normal to inspection and Yes no clubbing, cyanosis or edema Assessment & Plan Assessment & Plan (1) Sinusitis, acute: Code(s): J01.90 - Acute sinusitis, unspecified Qualifiers: Sinusitis location: unspecified location Recurrence: non-recurrent Qualified Code(s): J01.90 - Acute sinusitis, unspecified Plan: will send augmentin as it has been 12 days and sinus infection seems to be worsening. Plan see above Medications: New amoxicillin-pot clavulanate 875-125 mg 1 tab PO Q12H 10 tabs 0RF Coding Level of Care Code Est Pt Level 3 (61116) Diagnoses Acute non-recurrent sinusitis, unspecified location J01.90 Sinusitis location: unspecified location Recurrence: non-recurrent
== END 2023-12-22 15:30 | disposition home or self-care (01) ==
PROVIDERS: PCP Physician Assistant; Visit Provider Physician Assistant
DX: J01.90 Acute sinusitis, unspecified (principal)

== ENCOUNTER → 2023-12-22 14:46 | Outpatient (BNVA) | payer OTHER, SELFPAY | PROVIDERS: PCP Physician Assistant; Visit Provider Physician Assistant ==

== ENCOUNTER 2024-04-30 11:11 | Outpatient (AMB) | payer OTHER, SELFPAY ==
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
[2024-04-30 11:23] VITALS: BP 118/70; PULSE 70; O2SAT 97; BMI 23.8
--- OUTSIDE RECORDS SUMMARY | 2024-04-30 12:44 | XMS_ITS | Continuity of Care Document ---
Author Organization [facility] ter Address [address] [place] [id number]- Care Team Providers Care Water Treatment Technician Name Role Phone Nasir Weems Primary Care Physician [place] [facility] [place] - 04/07/[address] [address]- [place] Attending Physician: Nasir Weems Admitting Physician: Nasir Weems Referring Physician: Nasir Weems Encounter Type: Pre-Outpt Allergies, Adverse Reactions, Alerts No Known Medication Allergies Medications Lamotrigine 200 mg, By Mouth, 2 times a day, Refills 0, Maintenance, 06/11/17 2:44:08 PM EDT Start Date: 06/11/17 Status: Ordered Repeat number: 1 levothyroxine 0.025 mg oral tablet 1 tablet = 25 mcg, By Mouth, Daily, 175 MCG, # 30 tablet, 0 Refills, Maintenance, 06/11/17 2:44:02 PM EDT, Tablet Start Date: 06/11/17 Status: Ordered Quantity: 30.0 Unit: tablet Repeat number: 1 Social History Social History Type Response Smoking Status Former smoker, quit more than 30 days ago; Other: quit 2002; entered on: 03/06/24 Sex Sex Representation Male (finding) Patient Care team information Care Team Personnel Name: Nasir Weems Position: Reference Physician Member Role: PCP Address: [address] [place], [place] [address] Telecom: Care Team Related Persons Name: CARLY ZAMUDIO Insurance Providers Guarantor name: GAURAV RUSSO Health Plan Information #: 1 Payer: [facility] NON BHP HMO Member Number: [id number] Policy Number: MICHELLE Group Number: [id number] Health Plan Information #: 2 Payer: [facility] NON BHP O Member Number: [id number] Policy Number: MICHELLE Group Number: [id number]
--- OUTSIDE RECORDS SUMMARY | 2024-04-30 12:44 | XMS_ITS | Continuity of Care Document ---
Author Organization [facility] Address [address] [place] [address], [address] [place] [address]- Care Team Providers Care Import Dispatcher Name Role Phone Nasir Weems Primary Care Physician [place] [facility] [place] - 04/05/24 [facility] [address] [place] [address] Drive [address] [place] [address]- Attending Physician: Corey Medrano Admitting Physician: Corey Medrano Referring Physician: AdmtrCorey Encounter Type: Triage Allergies, Adverse Reactions, Alerts No Known Medication [...] Position: Reference Physician Member Role: PCP Address: [address] [place] [address] [address] [place] [id number] Telecom: Care Team Related Persons Name: CARLY ZAMUDIO Insurance Providers Guarantor name: GAURAV Health Plan Information #: 1 Payer: [facility] NON BHP HMO Member Number: NA Policy Number: NA Group Number: [id number]
== END 2024-04-30 11:59 | disposition home or self-care (01) ==
PROVIDERS: PCP Physician Assistant; Visit Provider Physician Assistant
DX: E03.9 Hypothyroidism, unspecified (principal); G40.909 Epilepsy, unspecified, not intractable, without status epilepticus; S06.9X9D Unspecified intracranial injury with loss of consciousness of unspecified duration, subsequent encounter

== ENCOUNTER → 2024-04-30 11:11 | Outpatient (BNVA) | payer OTHER, SELFPAY | PROVIDERS: PCP Physician Assistant; Visit Provider Physician Assistant | DX: E03.9 Hypothyroidism, unspecified (principal); G40.909 Epilepsy, unspecified, not intractable, without status epilepticus; S06.9X9D Unspecified intracranial injury with loss of consciousness of unspecified duration, subsequent encounter; Z79.899 Other long term (current) drug therapy | CPT/HCPCS: 96127 ==

== ENCOUNTER 2024-08-15 11:38 | Outpatient (REF) | payer OTHER, SELFPAY ==
[2024-08-15 12:31] LABS: Hematocrit 38.2 % (42.0-52.0); Hemoglobin 12.5 g/dl (14.0-18.0); Mean Corpuscular HGB Conc 32.7 g/dl (31.0-36.0); Mean Corpuscular Hemoglobin 29.7 pg (27.0-33.0); Mean Corpuscular Volume 90.7 fL (80.0-98.0); Mean Platelet Volume 8.9 fL (9.4-12.4); Platelet Count 234 X10*3/uL (160-400); Red Blood Count 4.21 X10*6/uL (4.60-5.80); Red Cell Distribution Width 12.7 % (11.0-16.0); White Blood Count 4.6 X10*3/uL (4.8-10.8)
[2024-08-15 13:10] LABS: Alanine Aminotransferase 32 U/L (0-40); Albumin Level 4.6 g/dL (3.5-5.0); Alkaline Phosphatase 71 U/L (39-117); Anion Gap 10 (12-20); Aspartate Amino Transferase 35 U/L (5-37); Bilirubin Total 0.3 mg/dL (0.0-1.0); Blood Urea Nitrogen 13 mg/dL (9-16); Calcium 9.5 mg/dL (8.4-10.2); Carbon Dioxide 30 mmol/L (22-29); Chloride 109 mmol/L (96-108); Cholesterol 183 mg/dL (<200); Estimated Glomerular Filt Rate > 60; Glucose Fasting 94 mg/dL (60-99); HDL Cholesterol 40 mg/dL (>40); LDL Cholesterol Calculated 127 mg/dL (<100); Potassium 4.1 mmol/L (3.3-5.1); Sodium 145 mmol/L (135-145); Total Protein 7.3 g/dL (6.5-8.0); Triglycerides 82 mg/dL (<150)
[2024-08-15 13:25] LABS: TSH reflex Free T4 1.85 uIU/mL (0.32-4.0)
== END 2024-08-15 11:39 | disposition home or self-care (01) ==
LOC: HO.LAB 11:38
PROVIDERS: PCP Physician Assistant; Visit Provider Physician Assistant
DX: Z13.1 Encounter for screening for diabetes mellitus (principal); E78.9 Disorder of lipoprotein metabolism, unspecified; E03.9 Hypothyroidism, unspecified; G40.909 Epilepsy, unspecified, not intractable, without status epilepticus
CPT/HCPCS: 36415; 80053; 80061; 84443; 85027

== ENCOUNTER 2024-10-31 11:11 | Outpatient (AMB) | payer OTHER, SELFPAY ==
[2024-10-31 11:13] VITALS: BP 140/88; PULSE 79; TEMP 36.2; O2SAT 99; BMI 24.7
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
[2024-10-31 11:48] VITALS: BP 115/80
== END 2024-10-31 12:03 | disposition home or self-care (01) ==
LOC: HO.HMCH 11:12
PROVIDERS: PCP Physician Assistant; Visit Provider Physician Assistant
DX: Z00.00 Encounter for general adult medical examination without abnormal findings (principal); E03.9 Hypothyroidism, unspecified; G40.909 Epilepsy, unspecified, not intractable, without status epilepticus; K40.90 Unilateral inguinal hernia, without obstruction or gangrene, not specified as recurrent

== ENCOUNTER → 2024-10-31 11:11 | Outpatient (BNVA) | payer OTHER, SELFPAY | PROVIDERS: PCP Physician Assistant; Visit Provider Physician Assistant | DX: Z00.00 Encounter for general adult medical examination without abnormal findings (principal); E03.9 Hypothyroidism, unspecified; G40.909 Epilepsy, unspecified, not intractable, without status epilepticus; H91.92 Unspecified hearing loss, left ear; K40.90 Unilateral inguinal hernia, without obstruction or gangrene, not specified as recurrent; E78.9 Disorder of lipoprotein metabolism, unspecified; Z87.820 Personal history of traumatic brain injury | CPT/HCPCS: 96127 ==

== ENCOUNTER 2025-01-09 10:55 | Outpatient (AMB) | payer OTHER, SELFPAY ==
--- NOTE | 2025-01-09 10:58 | MHC.PC.OV ---
Vital Signs 01/09/25 10:59 Height 5 ft 9 in Weight 172 lb BMI 25.4 BP 112/70 Blood Pressure Location Lt brachial Position Sitting Pulse 56 Pulse Source Pulse Oximeter Temp 97.3 F Temp Source Oral Pulse Oximetry (%) 99 Oxygen Delivery Method Room Air Intake Visit Reasons: right knee pain Allergies No Known Allergies Allergy (Verified 01/09/25 11:00) Medication List - Last Reconciled 01/09/25 by Angelica Wheeler MD ibuprofen 800 mg PO Q6H PRN lamotrigine 200 mg PO BID levothyroxine 150 mcg PO DAILY@0630 Tobacco use date assessed: 10/31/24 Dental Screening Dental Screen Date: 10/31/24 HPI HPI Comments History of Present Illness Details The patient is a 44-year-old male presenting with right knee pain. He sustained an injury in the last week of October when he twisted his right knee while skateboarding. Although he did not fall with a direct impact, he noted a large bruise at the time, which has since resolved. Initially, the patient was limping but did not seek medical attention as the symptoms seemed to be gradually improving. However, yesterday, he experienced a sudden, sharp pain in the knee while going down the stairs. He describes the pain as intermittent, with a severity of 8 out of 10, occurring with twisting or sideways movements, while forward and backward motion is fine. The pain can radiate up the back of his thigh. For pain management, the patient has been taking ibuprofen 800 mg at night and acetaminophen 1000 mg during the day. His other medications include lamotrigine and levothyroxine. 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 Father Heart attack, Onset Age: 57 Diabetes Social History Housing: Apartment Alcohol intake: current Alcohol intake frequency: a few times a month Alcohol type: beer Patient Tobacco Use Status: Former Tobacco user Tobacco use type: Cigarette e-Cigarette/Vaping Use: Never Used Second Hand Smoke Exposure: No Substance Use Type: Marijuana service: No Current occupational status: employed Current occupation: rt hand /patient care Cognitive needs: No Hearing needs: No Vision needs: Yes (Glasses) Questionnaire Thrive Questionnaire Date Thrive assessed: 10/24/24 I am a: Patient What is your living situation today?: I have a steady place to live Within the past 12 months, did the food you bought not last and you didn't have the money to get more?: Never true Within the past 12 months, did you worry whether your food would run out before you got money to buy more?: Never true Do you have trouble paying for medicines?: No Do you have trouble getting transportation to medical appointments?: No Do you have trouble paying your heating and electricity bill?: No Do you have trouble taking care of your child, family member or friend?: No Do you have trouble with day-to-day activities such as bathing, preparing meals, shopping, managing finances, etc.?: No Are you currently unemployed and looking for a job?: No Are you interested in more education?: No Please select the resources that you would like help with: None Currently or been in a relationship where the following occur: No concerns reported THRIVE Score: 0 BJORN-7 AMB Questionnaire BJORN-7 Date BJORN - 7 assessed: 04/30/24 Source: Developed by Drs. Robbin Hancock, Lilibeth Bobby, Epifanio See and colleagues, with an educational phu from [employer]. Physical exam (Primary Care) Vital Signs: Last Vital Signs Temp 97.3 F 01/09/25 10:59 Pulse 56 01/09/25 10:59 BP 112/70 01/09/25 10:59 Pulse Ox 99 01/09/25 10:59 Oxygen Delivery Method Room Air 01/09/25 10:59 General: Well-appearing, alert, oriented ?3, in no acute distress. Cardiovascular: RRR, S1-S2 appreciated, no murmurs, rubs or gallops. Respiratory: Lungs clear to auscultation bilaterally, no wheezes, rales or rhonchi. Knee exam: No visible swelling or bruise appreciated. No tenderness to palpation around the joint line. No joint laxity appreciated. Pain is provoked with twisting maneuvers while weight-bearing on the right leg (positive thessaly test) BMI result Body Mass Index 25.4 Tobacco/Smoking Status: Tobacco use Status Tobacco use date assessed 10/31/24 01/09/25 11:03 Patient Tobacco Use Status Former Tobacco user 01/09/25 11:03 Tobacco use type Cigarette 01/09/25 11:03 e-Cigarette/Vaping Use Never Used 01/09/25 11:03 Thrive Assessment: Date of Thrive Assessment Date Thrive assessed 10/24/24 01/09/25 11:03 Currently or been in a relationship where the following occur: No concerns reported Coding Level of Care Code Est Pt Level 4 (73504) Diagnoses Right knee pain, unspecified chronicity M25.561 Chronicity: unspecified Assessment & Plan Assessment & Plan (1) Right knee pain: Code(s): M25.561 - Pain in right knee Category: Medical Qualifiers: Chronicity: unspecified Qualified Code(s): M25.561 - Pain in right knee Plan: The patient presents with right knee pain following a twisting injury in October 2024, with a recent exacerbation of sharp, intermittent pain rated 8/10, provoked by twisting movements. The physical exam is negative for swelling or laxity but positive for pain on provocative twisting maneuvers suggesting possible meniscal injury? Possible ligament sprain. Plan -x-ray will be obtained, patient may need an MRI. -prescription for ibuprofen 800 mg q.6 hours p.r.n. provided. Advised to take with food and water and avoid exceeding 3200 mg in 24 hours -orthopedic referral provided for further evaluation and management Orders: Orders XR knee RT 3V Today M25.561 - Pain in right knee Referrals Orthopedics Referral M25.561 - Pain in right knee Medications: New ibuprofen 800 mg PO Q6H PRN 30 tabs 0RF pain
[2025-01-09 10:59] VITALS: BP 112/70; PULSE 56; TEMP 36.3; O2SAT 99; BMI 25.4
== END 2025-01-09 11:20 | disposition home or self-care (01) ==
LOC: HO.HMCH 10:56
PROVIDERS: PCP Physician Assistant; Visit Provider Student in an Organized Health Care Education/Training Program
DX: M25.561 Pain in right knee (principal)

== ENCOUNTER 2025-01-09 10:55 | Outpatient (REF) | payer OTHER, SELFPAY ==
--- NOTE | ~2025-01-09 | XR_ITS ---
EXAMINATION: XR KNEE, RIGHT CLINICAL INFORMATION: M25.561 - Pain in right knee COMPARISON: None available. TECHNIQUE: Four views of the right knee. FINDINGS: No fracture or joint effusion. Alignment is anatomic. Joint spaces are maintained. No abnormal soft tissue calcification. XR/XR knee RT 3V IMPRESSION: No acute osseous findings Electronically signed by: Aj Eagle MD 01/09/2025 12:20 PM [facility] [place]
== END 2025-01-09 10:56 | disposition home or self-care (01) ==
LOC: HO.XRAY 10:55
PROVIDERS: PCP Physician Assistant; Visit Provider Student in an Organized Health Care Education/Training Program
DX: M25.561 Pain in right knee (principal)
CPT/HCPCS: 73562

== ENCOUNTER → 2025-01-09 11:39 | Outpatient (BNV) | payer OTHER, SELFPAY | PROVIDERS: PCP Physician Assistant; Visit Provider Radiology Diagnostic Ultrasound | DX: M25.561 Pain in right knee (principal) | CPT/HCPCS: 73562 ==